=== PATIENT | male | born 1955 | race Caucasian/White ===

== ENCOUNTER → 2016-05-02 | Outpatient (CLI) | payer OTHER ==
[~2016-05-02] MED LIST: AMOX500T3 PO; ASPCH81X PO; INSDGI SC; INSU100I SC; LISI-787 PO; POTASSIUM PO; VITAMIN C PO; VITAMIN E PO
[2016-05-02 10:02] LABS: BLOOD UREA NITROGEN 21 mg/dl (7-18); BUN/CREATININE RATIO 18.9 (10-20); CALCIUM 8.5 mg/dl (8.5-10.1); CARBON DIOXIDE 29 mmol/L (21-32); CHLORIDE 105 mmol/L (98-107); GLUCOSE 163 mg/dl (70-99); POTASSIUM 4.6 mmol/L (3.5-5.1); SODIUM 141 mmol/L (136-145)
[2016-05-02 10:08] LABS: ESTIMATED AVERAGE GLUCOSE 209 mg/dl; HA1C FLAG Normal (Normal)
== END | disposition home or self-care (01) ==
LOC: C.CPL 08:49
DX: Z01.810 Encounter for preprocedural cardiovascular examination (principal); Z01.812 Encounter for preprocedural laboratory examination; R94.31 Abnormal electrocardiogram [ECG] [EKG]

== ENCOUNTER → 2016-05-28 | Day surgery (SDC) | payer OTHER ==
[2016-05-14 09:48] VITALS: Ht 182.9 cm; Wt 111.4 kg
[~2016-05-28] VITALS: Ht 182.9 cm; Wt 111.4 kg
[~2016-05-28] MED LIST changes: +BUPIVACAINE 0.5 % 5 MG/1 ML MPF 30ML VIAL ONE; +CEFAZOLIN 2000 MG/60 ML D5W 60 ML IV SCH; +CEFAZOLIN 2000 MG/60 ML D5W IV SCH; +GELATIN SPONGE SZ 100 ONE; +SILVER SULFADIAZINE 1% CR 50 GM JAR EXT ONE
--- NOTE | 2016-05-28 09:18 | Anesthesiology Progress Note ---
Anesthesia Progress Note Date of Service May 28, 2016. Progress Notes case cancelled. Pt had eaten cookies and drank a glass of chocolate milk at 0730.
== END | disposition home or self-care (01) ==
LOC: X.SURG 08:08
PROVIDERS: ATTEND Podiatrist Foot & Ankle Surgery
DX: B07.9 Viral wart, unspecified (principal); Z53.8 Procedure and treatment not carried out for other reasons; M77.41 Metatarsalgia, right foot; M77.42 Metatarsalgia, left foot; I10 Essential (primary) hypertension; E78.5 Hyperlipidemia, unspecified; E11.9 Type 2 diabetes mellitus without complications; Z90.49 Acquired absence of other specified parts of digestive tract; Z98.890 Other specified postprocedural states

== ENCOUNTER → 2016-06-11 | Day surgery (SDC) | payer OTHER ==
--- NOTE | 2016-05-28 08:26 | HISTORY & PHYSICAL EXAMINATION ---
DATE OF ADMISSION: 05/28/2016 HISTORY OF PRESENT ILLNESS: A 61-year-old male presents for preop history and physical, requesting lesion surgery over both feet. Lesions are gradually worsening over time. Lesions have existed for several months. Unchanged with current treatment. Reports they are painful, indicates acid therapy does not change the condition, cryotherapy does not change the condition, debridement does not change the condition. Past treatments and tests for this condition include bleomycin acid therapy, cryotherapy, laser vaporization, and lesion excision. He notes the pain is rated as a 7 on a 10-point scale. Due to the nature and severity of the discomfort, he is requesting surgical intervention. He also requests new Rx for Metanx, he already stopped taking the medication for 6 months, numbness and tingling returned. PAST SURGICAL HISTORY: Appendectomy, colonoscopy. PAST MEDICAL HISTORY: Hypertension, hyperlipidemia, diabetes. MEDICATIONS: Vitamin E, vitamin C, amoxicillin, lisinopril, NovoLog, potassium, Metanx, Lantus. ALLERGIES: No known medical allergies. FAMILY HISTORY: Unremarkable. SOCIAL HISTORY: The patient denies smoking, alcohol use, illicit drug use, and STDs. REVIEW OF SYSTEMS: Unremarkable except chief complaint. PHYSICAL EXAMINATION: VITAL SIGNS: BP 122/90, temperature is 96.1. Height 5 feet 11, weight 250 pounds, body mass index 35. CONSTITUTIONAL: The patient appears well developed and nourished with good attention to body grooming and habitus. HEAD AND FACE: Head is normocephalic and atraumatic without any gross head, face, or neck masses. EARS, NOSE, EYES AND THROAT: Unremarkable. NECK: Neck is supple. Trachea is midline. CARDIOVASCULAR: Normal S1, S2, without murmur, gallops, rubs or clicks noted. Cardiovascular exam is normal. RESPIRATORY: Chest is symmetric. No scars are visible. No port or pacemaker. LUNGS: Clear to auscultation bilaterally and equal. GASTROINTESTINAL: Abdominal organs, bladder and kidneys show no abnormalities, masses, tenderness or rigidity. LYMPHATIC: No popliteal, inguinal or supraclavicular lymphadenopathy noted. VASCULAR: DP palpable. PT palpable. DERMATOLOGIC: Cutaneous lesions are observed bilateral feet. These lesions are located plantar aspect of left and right arch, showing no interruption of skin tension lines, but they are calloused. Submet right third, submet right fifth, submet left second, submet left fifth demonstrate lesions that are calloused, showing interruption of skin tension lines. NEUROLOGICAL: Touch, pin, vibratory pinprick sensations are decreased. Epicritic sensation per Garcia-Addison monofilament 5.07 decreased. MUSCULOSKELETAL: Muscle tone is normal. Muscle strength is 5/5 in all groups tested. PIPJ contractures 2 through 5 bilaterally. IMPRESSION: 1. Cutaneous vascular lesions, bilateral feet, status post partial lesion excision, hypergranular changes consistent with verruca CO2 laser vaporization 11/09/2013, status post bleomycin injection 06/20/2014, status post partial lesion excision, hypergranular, is compatible with verruca x2 left foot, bleomycin injection 08/29/2014. PLAN: I informed the patient the etiologies of cutaneous vascular lesions, offered the following treatment options: 1. Debridement and application of acid. 2. Surgical excision. 3. Cryotherapy. 4. CO2 laser vaporization. 5. Bleomycin. Reviewed procedure, risks and complications of each treatment at length. All questions were answered. The patient is aware that no treatment in common use is 100% effective and success rate for all these treatments are relatively similar. The patient elects to proceed with CO2 laser vaporization and partial lesion excision in bilateral lower extremities with local with IV sedation as an outpatient at surgery center. Procedure, risks, complications fully reviewed with the patient. Consent form and foot diagram and illustration reviewed in all their entirety. The patient's questions were answered. Complications were discussed in detail with the patient including pain, infection, swelling that may or may not be excessive, pins and needles feeling, numbness, metatarsalgia, excessive bleeding, delay or nonhealing skin, enlarged scar, failure of the procedure, recurrence or worsening condition that may or may not require further surgery, adverse reaction to anesthesia, allergic reaction to suture or other implant material, loss of toe, foot, or leg, transfer lesion or callus, peripheral neurovascular complications such as phlebitis, damage to nerves or vascular structures, significant chronic pain, chronic nerve pain or damage, and general medical complications. The patient will be required to be in a surgery shoe for a minimum of 3-7 days and not return to dress shoe for 3 weeks depending on postop edema, need for accommodative padding. The patient is aware this is an elective type procedure and I recommend a second opinion. The patient stated they understood. Consent form was signed with a copy of the foot diagram and illustration given to the patient. Verbal and postoperative instructions were given. The patient will return to the office for postop check or sooner if medically necessary. Instructed to keep the dressing clean, dry and intact until seen at the office. At time of the preoperative appointment, prescriptions for Metanx, Silvadene, acetaminophen, hydrocodone and Keflex were dispensed.
[2016-06-10 08:08] VITALS: Ht 182.9 cm; Wt 111.4 kg
[~2016-06-11] VITALS: Ht 182.9 cm; Wt 111.4 kg
[~2016-06-11] MED LIST changes: +ATROPINE SULFATE 0.1 MG/ML 5ML SYR IV PRN; -CEFAZOLIN 2000 MG/60 ML D5W 60 ML IV SCH; +EpHEDrine SULFATE INJ 50 MG/ML AMP IV PRN; +FENTANYL CITRATE INJ 50 MCG/1 ML 2 ML VIAL IV PRN; +FENTANYL CITRATE INJ 50 MCG/1 ML 2 ML VIAL ONE; +HYDROmorphone INJ 1 MG/ML SYR IV PRN; +LABETALOL HCL IV 5 MG/ML 20ML IV ONE; +LACTATED RINGER'S 1000ML 1,000 ML IV SCH; +LIDOCAINE HCL 2% 2 ML VIAL (20MG/ML) ONE; +MIDAZOLAM HCL 1 MG/ML 2ML VIAL ONE; +ONDANSETRON INJ 2 MG/ML 2 ML VIAL IV PRN; +PROPOFOL IV EMULSION 10 MG/ML 20 ML VIAL IV ONE; +SODIUM CHLORIDE 0.9% 1000ML 1,000 ML IV SCH
--- NOTE | 2016-06-11 06:57 | History & Physical Bridge - [place] ---
H&P Re-Evaluation Bridge Note: I have examined the patient, reviewed the History & Physical and in the interval since the performance of the History & Physical I have noted the following changes of clinical significance: No changes noted
--- NOTE | 2016-06-11 07:01 | Discharge Instructions-SurgCtr ---
Discharge Instructions Date of Service Jun 11, 2016. Visit Reason for Visit: Bilateral Feet Painful Vascular Lesions Discharge Discharge Diagnosis / Problem: same as diagnosis Discharge Goals Goal(s): Decrease discomfort, Improve disease control Activity Recommendations Activity Limitations: as noted below Medications: * Resume previous medications unless instructed by your surgeon. * Take your medications as prescribed. Call our office ([phone]) at any time, if you experience severe pain that does not subside shortly after taking your pain medication. Activity: * You may walk on your operated foot/ankle using the surgical shoe or cast/splint. Do not put any weight on your operated foot/ankle without wearing the surgical shoe or cast sandal.. Special Care: * Keep your bandage clean and dry. Do not remove your bandage unless otherwise instructed. A small amount of blood may appear on the bandage over the surgical site. Call our office ([phone]) if you bandage becomes blood-soaked or wet. * Elevate your operated foot/ankle on pillows, above the level of your heart, as often as possible during the first 2-3 days following surgery. Keep your knee flexed slightly with a pillow under your knee when you elevate your foot/ankle. * Apply a ice bag to your foot/ankle over the operative site for 20-30 minutes out of each hour while you are awake. Do not allow the ice bag to directly contact bare skin. * Avoid bumping or handling any pins visible in your toes. If any pin feels or appears loose, call the office ([phone]). * Take your oral temperature in the morning and at bedtime. Call our office ([phone]) if your temperature rises above 101 degrees Fahrenheit. Call your surgeon's office at ([phone]) for any problems or concerns such as excessive bleeding and/or pain unrelieved by your prescribed pain medications. If you have any questions, please do not hesitate to ask them. Avoid all tobacco products. If you need help to stop smoking, call [place]'s FREE QUITLINE at . This is a free call. Follow-up: Follow-up with Dr. Lucas Anesthesia . Post Anesthesia Instructions: If you have had General Anesthesia or IV Sedation: * Do not drive today. * Resume driving when surgeon permits. * Do not make important decisions or sign legal documents today. * Call surgeon for: 1. Temperature elevations greater than 101 degrees F. 2. Uncontrollable pain. 3. Excessive bleeding. 4. Persistent nausea and vomiting. 5. Medication intolerance (nausea, vomiting or rash). * For nausea and vomiting use only clear liquids such as: tea, soda, bouillon until nausea subsides, then gradually increase diet as tolerated. * If you have any concerns or questions, call your surgeon's office. If physician is unavailable and it is an emergency, call 911 or go to the nearest emergency room. . Diet Recommendations Home Diet: resume previous diet Pending Studies Studies pending at discharge: no Medical Emergencies . Who to Call and When: Medical Emergencies: If at any time you feel your situation is an emergency, please call 911 immediately. . Non-Emergent Contact Non-Emergency issues call your: Primary Care Provider . . "Provider Documentation" section prepared by Frida Johns.
[2016-06-11 07:46] VITALS: TEMP 36.4
[2016-06-11 08:00] VITALS: BP 159/83; PULSE 71; O2SAT 96
--- NOTE | 2016-06-11 08:05 | Anesthesia Progress Nt - [facility] ---
Anesthesia Post Op Note Date & Time Jun 11, 2016 at 08:05 Vital Signs Pain Intensity: 0 Vital Signs Past 12 Hours Date Time Temp Pulse Resp B/P Pulse Ox O2 Delivery O2 Flow Rate FiO2 06/11/16 08:00 71 16 159/83 96 Room Air 06/11/16 07:46 36.4 78 18 148/68 95 Room Air 06/11/16 06:30 36.6 74 18 184/90 96 Room Air Notes Mental Status: alert / awake / arousable, participated in evaluation Pt Amnestic to Procedure: Yes Nausea / Vomiting: adequately controlled Pain: adequately controlled Airway Patency, RR, SpO2: stable & adequate BP & HR: stable & adequate Hydration State: stable & adequate Anesthetic Complications: no major complications apparent
--- NOTE | 2016-06-11 11:00 | OPERATIVE REPORT ---
DATE OF OPERATION: 06/11/2016 PREOPERATIVE DIAGNOSES: 1. Painful vascular lesions, bilateral feet. 2. Metatarsalgia secondary to painful lesions. POSTOPERATIVE DIAGNOSES: Same. PROCEDURES: 1. CO2 laser vaporization approximately 11 square cm bilateral feet. 2. Partial lesion excision to a depth of 1.2 on the left x5 and right x3. ANESTHESIA: IV with local sedation, preop block given 30 mL 0.5% Marcaine plain. HEMOSTASIS: None. ESTIMATED BLOOD LOSS: Less than 5 mL. MATERIALS: Gelfoam. CONDITION: The patient tolerated the procedure and anesthesia well without complications, transported to the recovery room, vital signs stable and neurovascular status intact. DESCRIPTION OF PROCEDURE: The patient was brought to the OR and placed on the OR table in supine position. Upon completion of IV with local sedation, local field block was performed with the above-mentioned anesthetic. The extremities were scrubbed, prepped and draped in the usual aseptic fashion. Attention was directed to the plantar aspect of bilateral feet. Partial excision of lesion to the depth of 1.2 cm, 5 areas on the left and 3 areas on the right, laser was set at 10 calix and completely ablated the forefoot and midfoot areas of bilateral feet of all involvement. This area was debrided and a second application was applied at 8 calix. Gelfoam was used over the lesion excision sites. All bleeding was controlled. Dry sterile compressive dressing consisting of Silvadene, 4 x 4's, ABDs, Kerlix, and an Scot was applied. The patient tolerated the procedure and anesthesia well without complications, transported to the recovery room, vital signs stable and neurovascular status intact. I attest to the content of the Intraoperative Record and any orders documented therein. Any exceptio ns are noted below.
== END | disposition home or self-care (01) ==
LOC: X.SURG 06:17
PROVIDERS: ATTEND Podiatrist Foot & Ankle Surgery
DX: B07.8 Other viral warts (principal); E11.9 Type 2 diabetes mellitus without complications; M19.90 Unspecified osteoarthritis, unspecified site

== ENCOUNTER → 2016-08-05 | Outpatient (CLI) | payer OTHER ==
[~2016-08-05] MED LIST changes: -ATROPINE SULFATE 0.1 MG/ML 5ML SYR IV PRN; -BUPIVACAINE 0.5 % 5 MG/1 ML MPF 30ML VIAL ONE; -CEFAZOLIN 2000 MG/60 ML D5W IV SCH; -EpHEDrine SULFATE INJ 50 MG/ML AMP IV PRN; -FENTANYL CITRATE INJ 50 MCG/1 ML 2 ML VIAL IV PRN; -FENTANYL CITRATE INJ 50 MCG/1 ML 2 ML VIAL ONE; -GELATIN SPONGE SZ 100 ONE; -HYDROmorphone INJ 1 MG/ML SYR IV PRN; -LABETALOL HCL IV 5 MG/ML 20ML IV ONE; -LACTATED RINGER'S 1000ML 1,000 ML IV SCH; -LIDOCAINE HCL 2% 2 ML VIAL (20MG/ML) ONE; -MIDAZOLAM HCL 1 MG/ML 2ML VIAL ONE; -ONDANSETRON INJ 2 MG/ML 2 ML VIAL IV PRN; -PROPOFOL IV EMULSION 10 MG/ML 20 ML VIAL IV ONE; -SILVER SULFADIAZINE 1% CR 50 GM JAR EXT ONE; -SODIUM CHLORIDE 0.9% 1000ML 1,000 ML IV SCH
--- NOTE | 2016-08-06 13:06 | CODING QUERY NO DIAGNOSIS ---
TREATMENT RENDERED WITHOUT A DIAGNOSIS To promote full compliance with coding requirements relating to patient care, physician participation is requested in all cases of station manager uncertainty. Please assist us with providing a diagnosis/symptom for the test(s) below: A diagnosis/symptom was not documented on your Order. A valid diagnosis/symptom is required to bill all insurances. Please remember that we are unable to code a diagnosis of rule out, probable, possible, questionable, or suspected. Tests that require a diagnosis: * WOUND CULTURE, SURFACE AND GS R FOOT DIAGNOSIS: Provider Signature: Date: Thank you Karen [place] [employer] Once completed, please kindly fax back to [phone] For questions please call [phone]
== END | disposition home or self-care (01) ==
LOC: C.LABSPEC 17:08
PROVIDERS: ATTEND Podiatrist Foot & Ankle Surgery
DX: L03.115 Cellulitis of right lower limb (principal)

== ENCOUNTER → 2016-10-21 | Outpatient (CLI) | payer OTHER ==
[2016-10-21 09:35] LABS: BASO % 0.3 %; BASO ABS # 0.02 K/uL (0-0.2); COMPLETE YES; EOS % 3.8 %; HEMATOCRIT 44.9 % (42-52); IG% 0.5 %; LYMPH % 21.8 %; LYMPH ABS # 1.27 K/uL (1.2-3.4); MEAN CELL VOLUME 79.2 fL (80-100); MEAN CORPUSCULAR HEMOGLOBIN 25.7 pg (25-34); MEAN CORPUSCULAR HGB CONC 32.5 g/dl (32-36); MEAN PLATELET VOLUME 10.4 fL (7.4-10.4); MONO % 9.3 %; NEUT % 64.3 %; PLATELET COUNT 226 K/uL (130-400); RED BLOOD COUNT 5.67 M/uL (4.7-6.1); WHITE BLOOD COUNT 5.83 K/uL (4.8-10.8)
[2016-10-21 10:10] LABS: RATIO 108.6 mcg/mg (0-30.0)
[2016-10-21 10:14] LABS: ALB/GLOB RATIO 1.1 (0.9-2); ALT/SGPT 37 U/L (12-78); AST/SGOT 18 U/L (15-37); BLOOD UREA NITROGEN 17 mg/dl (7-18); BUN/CREATININE RATIO 17.8 (10-20); CALCIUM 8.5 mg/dl (8.5-10.1); CARBON DIOXIDE 23 mmol/L (21-32); CHLORIDE 106 mmol/L (98-107); CHOLESTEROL 161 mg/dl (0-200); CHOLESTEROL/HDL RATIO 5.4; CREATININE 0.96 mg/dl (0.60-1.40); GLUCOSE 163 mg/dl (70-99); HDL CHOLESTEROL 30 mg/dl; POTASSIUM 4.1 mmol/L (3.5-5.1); SODIUM 137 mmol/L (136-145)
[2016-10-21 10:17] LABS: ALKALINE PHOSPHATASE 96 U/L (45-117); LDL CHOLESTEROL CALCULATED 106 mg/dl; TRIGLYCERIDES 127 mg/dl (0-150); VERY LOW DENSITY LIPOPROT CALC 25 mg/dl
[2016-10-21 10:59] LABS: ESTIMATED AVERAGE GLUCOSE 194 mg/dl; HA1C FLAG Normal (Normal)
== END | disposition home or self-care (01) ==
LOC: C.LAB1850 08:13
DX: I10 Essential (primary) hypertension (principal); E78.5 Hyperlipidemia, unspecified; M19.90 Unspecified osteoarthritis, unspecified site

== ENCOUNTER → 2017-03-20 | Outpatient (CLI) | payer OTHER ==
[2017-03-20 09:35] LABS: BASO % 0.6 %; BASO ABS # 0.03 K/uL (0-0.2); EOS % 3.7 %; EOS ABS # 0.19 K/uL (0-0.5); HEMATOCRIT 43.2 % (42-52); HEMOGLOBIN 14.7 g/dL (14.0-18.0); IG# 0.02 K/uL (0.00-0.02); LYMPH ABS # 1.09 K/uL (1.2-3.4); MEAN CORPUSCULAR HEMOGLOBIN 26.9 pg (25-34); MEAN PLATELET VOLUME 10.7 fL (7.4-10.4); MONO % 8.3 %; MONO ABS # 0.43 K/uL (0.11-0.59); NEUT ABS # 3.42 K/uL (1.4-6.5); PLATELET COUNT 179 K/uL (130-400); RED CELL DISTRIBUTION WIDTH CV 13.9 % (11.5-14.5); RED CELL DISTRIBUTION WIDTH SD 39.1 fL (36.4-46.3); WHITE BLOOD COUNT 5.18 K/uL (4.8-10.8)
[2017-03-20 09:52] LABS: HEMOGLOBIN A1C 9.1 % (4.5-5.6)
[2017-03-20 10:36] LABS: ALT/SGPT 36 U/L (12-78); AST/SGOT 14 U/L (15-37)
[2017-03-20 10:36] LABS: BLOOD UREA NITROGEN 25 mg/dl (7-18); CALCIUM 8.8 mg/dl (8.5-10.1); CARBON DIOXIDE 26 mmol/L (21-32); CREATININE 1.04 mg/dl (0.60-1.40); GLUCOSE 192 mg/dl (70-99); POTASSIUM 4.1 mmol/L (3.5-5.1); SODIUM 137 mmol/L (136-145)
== END | disposition home or self-care (01) ==
LOC: C.LAB1850 08:21
DX: E11.65 Type 2 diabetes mellitus with hyperglycemia (principal); I10 Essential (primary) hypertension; E78.5 Hyperlipidemia, unspecified

== ENCOUNTER → 2017-05-13 | Outpatient (CLI) | payer OTHER | END | disposition home or self-care (01) | LOC: C.LABSPEC 16:53 | PROVIDERS: ATTEND Podiatrist Foot & Ankle Surgery | DX: L97.509 Non-pressure chronic ulcer of other part of unspecified foot with unspecified severity (principal) ==

== ENCOUNTER → 2017-06-16 | Outpatient (CLI) | payer OTHER ==
[2017-06-16 12:28] LABS: HEMOGLOBIN A1C 9.2 % (4.5-5.6)
== END | disposition home or self-care (01) ==
LOC: C.LAB1850 10:27
PROVIDERS: ATTEND Nurse Practitioner Family
DX: E11.65 Type 2 diabetes mellitus with hyperglycemia (principal)

== ENCOUNTER → 2017-06-23 | Outpatient (CLI) | payer OTHER | END | disposition home or self-care (01) | LOC: C.LABSPEC 16:45 | PROVIDERS: ATTEND Podiatrist Foot & Ankle Surgery | DX: L97.509 Non-pressure chronic ulcer of other part of unspecified foot with unspecified severity (principal) ==

== ENCOUNTER → 2017-10-17 | Outpatient (CLI) | payer OTHER ==
[2017-10-17 11:10] LABS: ALBUMIN 3.7 gm/dl (3.4-5.0); ALKALINE PHOSPHATASE 96 U/L (45-117); ALT/SGPT 40 U/L (12-78); AST/SGOT 21 U/L (15-37); BLOOD UREA NITROGEN 19 mg/dl (7-18); CALCIUM 8.5 mg/dl (8.5-10.1); CARBON DIOXIDE 29 mmol/L (21-32); GLUCOSE 259 mg/dl (70-99); LDL CHOLESTEROL (DIRECT) 107 mg/dl; POTASSIUM 4.3 mmol/L (3.5-5.1); SODIUM 135 mmol/L (136-145); TOTAL PROTEIN 7.5 gm/dl (6.4-8.2)
[2017-10-17 11:56] LABS: HEMOGLOBIN A1C 8.5 % (4.5-5.6)
== END | disposition home or self-care (01) ==
LOC: C.LAB1850 09:24
PROVIDERS: ATTEND Internal Medicine Endocrinology, Diabetes & Metabolism
DX: E11.65 Type 2 diabetes mellitus with hyperglycemia (principal); E78.5 Hyperlipidemia, unspecified

== ENCOUNTER → 2017-11-07 | Outpatient (CLI) | payer OTHER ==
[2017-11-07 10:52] LABS: BLOOD UREA NITROGEN 26 mg/dl (7-18); CALCIUM 8.8 mg/dl (8.5-10.1); CARBON DIOXIDE 25 mmol/L (21-32); CREATININE 1.14 mg/dl (0.60-1.40); GLUCOSE 163 mg/dl (70-99); POTASSIUM 4.2 mmol/L (3.5-5.1); SODIUM 138 mmol/L (136-145)
== END | disposition home or self-care (01) ==
LOC: C.LAB1850 08:33
PROVIDERS: ATTEND Internal Medicine Endocrinology, Diabetes & Metabolism
DX: I10 Essential (primary) hypertension (principal); E11.21 Type 2 diabetes mellitus with diabetic nephropathy

== ENCOUNTER → 2017-11-09 | Outpatient (CLI) | payer OTHER ==
[2017-11-09 09:35] LABS: HEMATOCRIT 41.3 % (42-52); HEMOGLOBIN 13.9 g/dL (14.0-18.0); MEAN CELL VOLUME 77.2 fL (80-100); MEAN CORPUSCULAR HGB CONC 33.7 g/dl (32-36); MEAN PLATELET VOLUME 10.8 fL (7.4-10.4); PLATELET COUNT 184 K/uL (130-400); RED CELL DISTRIBUTION WIDTH CV 14.1 % (11.5-14.5); RED CELL DISTRIBUTION WIDTH SD 39.7 fL (36.4-46.3); WHITE BLOOD COUNT 6.52 K/uL (4.8-10.8)
[2017-11-09 09:48] LABS: BLOOD UREA NITROGEN 25 mg/dl (7-18); CALCIUM 8.5 mg/dl (8.5-10.1); CARBON DIOXIDE 23 mmol/L (21-32); CREATININE 1.18 mg/dl (0.60-1.40); POTASSIUM 4.4 mmol/L (3.5-5.1); SODIUM 134 mmol/L (136-145)
[2017-11-09 09:55] LABS: GLUCOSE 381 mg/dl (70-99)
== END | disposition home or self-care (01) ==
LOC: C.LAB1850 08:15
PROVIDERS: ATTEND Internal Medicine Interventional Cardiology
DX: R06.00 Dyspnea, unspecified (principal)

== ENCOUNTER 2018-11-20 05:12 | Observation (INO) ==
[2018-11-20] MEDS ORDERED: NITROGLYCERIN SL 0.4 MG/TAB TAB SL STA (05:26)
[2018-11-20] MEDS ORDERED: ASPIRIN 81 MG CHEW PO STA (05:26)
[2018-11-20 06:02] LABS: Basophils # (auto) 0.02 K/uL (0-0.2); Basophils % (auto) 0.3 %; Eosinophils # (auto) 0.19 K/uL (0-0.5); Eosinophils % (auto) 2.7 %; Hematocrit (blood only) 38.6 % (42-52); Immature Granulocytes # (auto) 0.03 K/uL (0.00-0.02); Immature Granulocytes % (auto) 0.4 %; Lymphocytes % (auto) 21.1 %; Mean Corpuscular Hemoglobin 26.3 pg (25-34); Mean Corpuscular Hgb Conc 33.7 g/dL (32-36); Mean Platelet Volume 9.9 fL (7.4-10.4); Monocytes # (auto) 0.72 K/uL (0.11-0.59); Monocytes % (auto) 10.1 %; Neutrophils # (auto) 4.66 K/uL (1.4-6.5); Neutrophils % (auto) 65.4 %; Platelet Count 207 K/uL (130-400); RDW Coefficient of Variation 14.8 % (11.5-14.5); RDW Standard Deviation 41.2 fL (36.4-46.3); Red Blood Count 4.95 M/uL (4.7-6.1); White Blood Count 7.12 K/uL (4.8-10.8)
[2018-11-20] MEDS ORDERED: LABETALOL HCL IV 5 MG/ML 20ML IV STA (06:06)
[2018-11-20 06:13] LABS: Prothrombin Time 10.3 Seconds (9.0-12.0)
[2018-11-20 06:17] LABS: BUN Creatinine Ratio 26.9 (10-20); Blood Urea Nitrogen 28 mg/dl (7-18); Calcium 8.3 mg/dl (8.5-10.1); Carbon Dioxide 29 mmol/L (21-32); Chloride 105 mmol/L (98-107); Creatinine Clr Calc Pharmacy 90.2 ml/min; Est GFR (African American) 85.9; Est GFR (Non-African American) 74.1; Glucose 115 mg/dl (70-99); Potassium 3.8 mmol/L (3.5-5.1); Sodium 139 mmol/L (136-145)
[2018-11-20 06:22] LABS: Troponin I < 0.015 ng/ml (0-0.045)
--- NOTE | 2018-11-20 06:25 | XRay Report ---
XR chest 1V portable CLINICAL HISTORY: Atypical chest pain COMPARISON STUDY: September 2013 FINDINGS: The heart is mildly enlarged. There is no failure. There is no focal pulmonary consolidatio n. There are no pleural effusions.[ IMPRESSION: No active disease in the chest. Electronically signed by: Yo Hall M.D. 11/20/2018 6:23 AM
[2018-11-20] MEDS ORDERED: MoRPHine SULFATE 10 MG/ML CARP/VIAL IV STA (06:51)
[2018-11-20] MEDS ORDERED: MoRPHine SULFATE 4 MG/ML 1 ML CARP\\VIAL ONE (06:55)
[2018-11-20] MEDS ORDERED: MoRPHine SULFATE 2 MG/ML CARP ONE (06:55)
--- NOTE | 2018-11-20 07:47 | Emergency Department Note ---
Entered by Kevin Tillman acting as a scribe for Mariano Tee MD ED Provider Note Name: Josafat Foster Age: 63 Arrives Via: Private Vehicle Informant: Self CC: Chest pain HPI: 63 male arrives for evaluation of worsening chest pain beginning 10 days ago. The patient states he has had intermittent chest pain pain on the left side under his heart and ribs. He reports it sometimes goes through to his back. The patient notes he has a history of 4 stent placements. He states the first round was 1.5 years ago and the most recent was 2 weeks ago in [place]. The patient reports his chef & owner is Dr. Cho from [place]. He notes he did take a baby aspirin 3.5 hours ago without relief. The patient states he did not take nitroglycerin because he did not have any. He reports he is on Plavix and h ydrochlorothiazide and denies missing a dose of medication. The patient notes he has a history of DM and HTN, and a family history of each. He states a history of an appendectomy. The patient reports he gives himself Novalog. He denies nausea, leg swelling, taking Coumadin, vomiting, LOC, lightheadedness. He also denies a history of smoking. His PCP is Dr. Duffy. ROS: See above HPI for pertinent positives & negatives. A total of 10 systems reviewed and were otherwise negative. Past Medical History: DM, HTN Past Surgical History: Stent placement Family History: DM, HTN Social History: Lives with . . Home Medications: see below Allergies none Physical: Vitals: BP 150/94, Pulse 76, Resp 20, O2Sat 97 on RA Exam: GENERAL: Patient is anxious appearing and in no acute distress. EYES: No scleral icterus, unremarkable pupils. ENT: Mucous membranes moist, no nasal congestion. NECK: No masses appreciated, no meningismus, trachea is midline. RESPIRATORY: No dyspnea. Clear to auscultation and equal bilaterally. No wheeze, no rhonchi. CARDIOVASCULAR: Regular rate and rhythm. No murmurs, rubs, gallops appreciated. GASTROINTESTINAL: Abdomen soft, non-tender, no peritonitis. Bowel sounds positive. No masses appreciated. BACK: No midline tenderness, no CVA tenderness EXTREMITIES: Normal motion all extremities, no cyanosis, no edema. NEUROLOGIC: Alert and oriented, no acute motor or sensory deficits, no focal weakness, cranial nerves grossly intact. SKIN: No rash, no jaundice, no diaphoresis. ED Course: Prior Medical Record, Triage/Nursing Notes, Medications, Allergies reviewed by Me Vital Signs: reviewed and remarkable for HTN Labs: Reviewed and remarkable for normal cbc, bmp, trop Interventions: saline lock, slntg, asa 324mg po, labetalol 10mg IV, Morphine 6mg IV Imaging: X ray results are stated below per my interpretation: Chest: 1 view: No infiltrate, no effusion, normal cardiac border. EKG: Per My Interpretation: Indication CP: Sinus 81 bpm without ischemia. 439 qtc. PVC noted. No previous for comparison. Consults: 0710: I discussed the patient's case with Dr. Stevenson, [facility] Hospitalist. The patient will be evaluated for further management and care. Reassessments/Times: 0520: Past medical records reviewed. The patient was evaluated in room A03. A complete history and physical exam was performed. 0606: The patient states his chest pain is worse with the sublingual nit roglycerin. He remains HTN. 0643: The patient states his pain is now shooting up and down the left side of his chest. He is asking for a strong pain pill. His blood pressure has normalized. 705: Hospitalist consulted for further evaluation Blood pressure: Elevated - Referred to PCP Disposition: Hospitalist evaluation Prescriptions: None. Differentials: Differential diagnoses includes but is not limited to acute coronary syndrome, myocardial infarction, pericarditis, pulmonary embolus, ao rtic dissection, pneumonia, pneumothorax, musculoskeletal, shingles, esophageal. Medical Decision Makin yr old with DMII, HTN, DLP, CAD, who arrives 2 weeks post Cath with stenting stating worsening left chest pain from base pain he has been having last 2 weeks. Quite hypertensive on arrival. States SLNTG made worse though labetalol making better though a bit lightheaded. Notes some mild continued pain which is nonspecific and he periodically points to left flank, sometimes left anterior chest. Doesn't sound like dissection nor PE. Was given some morphine as slntg didn't seem to help. With cp added in 162mg ASA to his already taking two baby asa at home. Single dose labetalol brought down BP nicely. With his extensive history and left chest pains I see no real option other than to evaluate further. Impression: Left-Sided Chest Pain Hypertension Emergency Mariano Tee MD The scribe's documentation has been prepared under my direction and personally reviewed by me in its entirety. I confirm that the note above accurately reflects all work, treatment, procedures, and medical decision making performed by me. Impression & Plan Left-sided chest pain, Hypertensive emergency Past Med/Surg History Medical History Coronary artery disease Peripheral arterial disease Surgical History S/P coronary angiogram S/P coronary artery stent placement S/P peripheral artery angioplasty with stent placement Family History Other Diabetes Social History Current Living Situation: Spouse Feels Safe at Home: Yes Smoking Status: Former smoker Results & Data Vital Signs Vital Signs - 24 hr 11/20/18 05:17 11/20/18 05:55 11/20/18 06:00 Temperature Source Oral Sepsis Recent Fever Within 48 Hours No Sepsis Action Taken by Nursing No Action Required Pulse Rate 82 Pulse Rate [Right Finger] 86 Pulse Rhythm Regular Pulse Rhythm [Right Finger] Regular Pulse Strength Normal Pulse Strength [Right Finger] Normal Respiratory Rate 20 16 Respiratory Effort / Characteristics Non-Labored Spontaneous Respiratory Depth Normal Normal Respiratory Pattern Regular Blood Pressure 236/104 H Blood Pressure [Right Arm] 214/103 H Blood Pressure Mean 148 Blood Pressure Mean [Right Arm] 140 Blood Pressure Position Lying Blood Pressure Position [Right Arm] Lying Pulse Oximetry 97 95 Oxygen Delivery Method Room Air Room Air 11/20/18 06:40 Temperature Source Sepsis Recent Fever Within 48 Hours Sepsis Action Taken by Nursing Pulse Rate Pulse Rate [Right Finger] 73 Pulse Rhythm Pulse Rhythm [Right Finger] Regular Pulse Strength Pulse Strength [Right Finger] Normal Respiratory Rate 16 Respiratory Effort / Characteristics Respiratory Depth Normal Respiratory Pattern Blood Pressure Blood Pressure [Right Arm] 134/87 Blood Pressure Mean Blood Pressure Mean [Right Arm] 102 Blood Pressure Position Blood Pressure Position [Right Arm] Lying Pulse Oximetry 98 Oxygen Delivery Method Room Air Home Medications Current Medication List: was personally reviewed by me Laboratory Data Attestation: I reviewed the patient's lab results. Result diagrams: 11/20/18 05:50 11/20/18 05:50 Lab Results 11/20/18 11/20/18 11/20/18 Range/Units 05:50 05:50 05:50 WBC 7.12 (4.8-10.8) K/uL RBC 4.95 (4.7-6.1) M/uL Hgb 13.0 L (14.0-18.0) g/dL Hct 38.6 L (42-52) % MCV 78.0 L (80-100) fL MCH 26.3 (25-34) pg MCHC 33.7 (32-36) g/dL RDW Std Deviation 41.2 (36.4-46.3) fL RDW Coeff of Leigh Ann 14.8 H (11.5-14.5) % Plt Count 207 (130-400) K/uL MPV 9.9 (7.4-10.4) fL Immature Gran % (Auto) 0.4 % Neut % (Auto) 65.4 % Lymph % (Auto) 21.1 % [place] % (Auto) 10.1 % Eos % (Auto) 2.7 % Baso % (Auto) 0.3 % Immature Gran # (Auto) 0.03 H (0.00-0.02) K/uL Neut # (Auto) 4.66 (1.4-6.5) K/uL Lymph # (Auto) 1.50 (1.2-3.4) K/uL [place] # (Auto) 0.72 H (0.11-0.59) K/uL Eos # (Auto) 0.19 (0-0.5) K/uL Baso # (Auto) 0.02 (0-0.2) K/uL PT 10.3 (9.0-12.0) Seconds INR 1.0 (0.9-1.1) Sodium 139 (136-145) mmol/L Potassium 3.8 (3.5-5.1) mmol/L Chloride 105 (98-107) mmol/L Carbon Dioxide 29 (21-32) mmol/L Anion Gap 5.0 (3-11) BUN 28 H (7-18) mg/dl Creatinine 1.05 (0.6-1.4) mg/dl Est Cr Clr Drug Dosing 90.2 ml/min Est GFR ( Amer) 85.9 Est GFR (Non-Af Amer) 74.1 BUN/Creatinine Ratio 26.9 H (10-20) Glucose 115 H (70-99) mg/dl Calcium 8.3 L (8.5-10.1) mg/dl Troponin I < 0.015 (0-0.045) ng/ml Administered Medications Discontinued Medications Aspirin (Aspirin Chew) 162 mg PO NOW STA Stop: 11/20/18 05:27 Last Admin: 11/20/18 06:02 Dose: 162 mg Documented by: [id number] Labetalol HCl (Normodyne) 10 mg IV NOW STA Stop: 11/20/18 06:07 Last Admin: 11/20/18 06:12 Dose: 10 mg Documented by: [id number] Cosigned by: [id number] Morphine Sulfate (Morphine Sulfate) 6 mg IV NOW Stop: 11/20/18 06:52 Last Admin: 11/20/18 07:03 Dose: Not Given Documented by: [id number] Morphine Sulfate (Morphine Sulfate) Confirm Administered Dose 4 mg .ROUTE .STK- MED ONE Stop: 11/20/18 06:56 Last Admin: 11/20/18 06:57 Dose: 4 mg Documented by: [id number] Morphine Sulfate (Morphine Sulfate) Confirm Administered Dose 2 mg .ROUTE .STK- MED ONE Stop: 11/20/18 06:56 Last Admin: 11/20/18 06:57 Dose: 2 mg Documented by: [id number] Nitroglycerin (Nitrostat) 0.4 mg SL NOW STA Stop: 11/20/18 05:27 Last Admin: 11/20/18 06:02 Dose: 0.4 mg Documented by: [id number] Blood Pressure Blood Pressure Findings: Elevated blood pressure Blood Pressure Disposition: elevated BP felt to be situational Discharge Plan Visit Data Chief Complaint: Chest Pain Stated Complaint: PAIN IN HEART ED Provider: Mariano Tee Discharge Problem: Left-sided chest pain, Hypertensive emergency Forms Stand Alone Forms: Call Back Authorization, [facility] Prescriptions Prescriptions: No Action Novolog Flexpen U-100 Insulin 100 unit/mL (3 mL) insulin pen 30 - 40 units SQ ACHS RF: 0 Tresiba FlexTouch U-100 100 unit/mL (3 mL) insulin pen 95 units SQ HS RF: 0 metoprolol succinate 25 mg tablet extended release 24 hr 25 mg PO DAILY RF: 0 isosorbide mononitrate 30 mg tablet extended release 24 hr 30 mg PO DAILY RF: 0 lisinopril 20 mg tablet 20 mg PO DAILY Qty: 90 RF: 0 hydrochlorothiazide 12.5 mg tablet 12.5 mg PO DAILY Qty: 90 RF: 0 lansoprazole 15 mg capsule,delayed release(DR/EC) 15 mg PO DAILY RF: 0 clopidogrel 75 mg tablet 75 mg PO DAILY RF: 0 [id number]-algal oil [Metanx (algal oil)] 3 mg-35 mg-2 mg -90.314 mg capsule 1 cap PO BID RF: 0 potassium gluconate 595 mg (99 mg) tablet 595 mg PO DAILY RF: 0 ascorbic acid (vitamin C) 500 mg tablet 500 mg PO BID RF: 0 ergocalciferol (vitamin D2) 50,000 unit capsule 50,000 units PO WK RF: 0 fluticasone propion-salmeterol 500-50 mcg/dose blister with device 1 puffs inhalation BID PRN (Reason: Congestion) RF: 0 vitamin E (dl, acetate) 400 unit capsule 400 units PO DAILY RF: 0 ranitidine HCl [Acid Control (ranitidine)] 150 mg tablet 150 mg PO DAILY RF: 0 rosuvastatin 20 mg tablet 20 mg PO DAILY RF: 0 aspirin [Aspir-81] 81 mg Tablet,Delayed Release (Dr/Ec) 81 mg PO DAILY RF: 0 aspirin [Aspirin Childrens] 81 mg Tablet,Chewable 162 mg PO ONCE RF: 0 The scribe's documentation has been prepared under my direction and personally reviewed by me in its entirety. I confirm that the note above accurately reflects all work, treatment, procedures, and medical decision making performed by me.
[2018-11-20] MEDS ORDERED: CARBOHYDRATES FOR HYPOGLYCEMIA PO PRN (09:57)
[2018-11-20] MEDS ORDERED: GLUCOSE 40% GEL 15 GM TUBE PO PRN (09:57)
[2018-11-20] MEDS ORDERED: GLUCAGON FOR INJ 1 MG VIAL SQ PRN (09:57)
[2018-11-20] MEDS ORDERED: ALBUT/IPRATROP 3MG/0.5MG NEB 3 ML VIAL NEB PRN (09:57)
[2018-11-20] MEDS ORDERED: GLUCOSE 10 TABS/TUBE PO PRN (09:57)
[2018-11-20] MEDS ORDERED: MoRPHine SULFATE 2 MG/ML CARP IV PRN (09:57)
[2018-11-20] MEDS ORDERED: ALUMINUM/MAGNESIUM/SIMETH (MAALOX MAX) 30 ML UDC PO PRN (09:57)
[2018-11-20] MEDS ORDERED: ACETAMINOPHEN 325 MG TAB PO PRN (09:57)
[2018-11-20] MEDS ORDERED: ONDANSETRON INJ 2 MG/ML 2 ML VIAL IV PRN (09:57)
[2018-11-20] MEDS ORDERED: DEXTROSE 50% 50 ML SYRINGE IV PRN (09:57)
[2018-11-20] MEDS ORDERED: PHARMACY GLYCEMIC MGMT CONSULT PRN (10:22)
[2018-11-20] MEDS ORDERED: INSULIN ASPART 100 UNITS/ML 3 ML PEN SC SCH (10:30)
[2018-11-20] MEDS: ROSUVASTATIN CALCIUM 20 MG TAB PO SCH (11:16)
[2018-11-20] MEDS: hydroCHLOROthiazide 25 MG TAB PO SCH (11:17)
[2018-11-20] MEDS: ASPIRIN 81 MG ECTAB PO SCH (11:17)
[2018-11-20] MEDS: ISOSORBIDE MONO EXTENDED REL 30 MG TABCR PO SCH (11:18)
[2018-11-20] MEDS: CLOPIDOGREL BISULFATE 75 MG TAB PO SCH (11:19)
[2018-11-20] MEDS: LISINOPRIL 20 MG TAB PO SCH (11:20)
[2018-11-20] MEDS: METOPROLOL SUCC 25MG EXT REL TAB PO SCH (11:20)
[2018-11-20] MEDS: PANTOprazole 40 MG in SYRINGE 0 ML IV SCH ×2 (11:21→20:34)
[2018-11-20] MEDS: SUCRALFATE 1 GM/10 ML UDC PO SCH ×3 (11:24→20:37)
[2018-11-20] MEDS: INSULIN ASPART 100 UNITS/ML 3 ML PEN SC SCH ×3 (12:05→20:36)
--- NOTE | 2018-11-20 13:49 | Pharmacy Report ---
Glycemic Control Consultation - Date of Service November 20, 2018 - Scope Scope: Glycemic Pharmacist consulted for glycemic control and to write orders per [facility] inpatient glycemic control protocol - Objective Weight: 109 kg Accuchecks BSG (last 24hrs): 11/20/18 11/20/18 05:50 11:07 Glucose 115 H POC Glucose 122 H Laboratory Data (last 24hrs): 11/20/18 05:50 Potassium 3.8 Carbon Dioxide 29 Anion Gap 5.0 Creatinine 1.05 Est Cr Clr Drug Dosing 90.2 HbA1c: 8.6% on 08/30/18 - Recent Pertinent Medications Outpatient Anti-diabetic Regimen: * Tresiba 95 units SQ HS * NovoLog ACHS 30-40 units/dose - Assessment & Plan Assessment & Plan: ASSESSMENT: * 63yo T2DM male with near adequate degree of outpatient control. Goal A1c likely <7% based on age/co-morbidities * Pt is maintained on high dose SQ basal bolus insulin regimen as an outpatient. * Pt uses insulin degludec (Tresiba) as outpatient basal insulin. This is non- formulary; will sub to glargine (Lantus) for short term inpatient use. Conversion from degludec to glargine is on a 1:1 basis; but will reduce dosing since, typically, patients do not require outpatient dosing in house d/t controlled CHO/diet (unless patient has significant added risk factors for insulin resistance). * Will initiate CF/CR per reduced basal insulin dosing (75 units) PLAN FOR INPATIENT GLYCEMIC CONTROL: * Basal insulin * Lantus 75 units SQ HS * Bolus insulin * NovoLog per scale ACHS or Q6hrs while NPO * Goal Range: Low 110 mg/dL - High 140 mg/dL * Correction Factor: 10 mg/dL/unit * Nutritional / Prandial insulin per carb ratio of 1 unit per 4 grams CHO consumed * Please note that the plan above was derived based on current level of insulin resistance and hospital stress. These recommendations are appropriate for inpatient admission only. Plan of care upon discharge will need to be reassessed to avoid potential outpatient hypo/hyperglycemia. Thank you.
--- NOTE | 2018-11-20 15:54 | History & Physical Report ---
Date of Service November 20, 2018 Assessment & Plan (1) LUQ abdominal pain: Mostly likely gastritis from taking multiple ASA a day on top of NSAIDs and Plavix. Hgb and vitals are stable & no melena all point away from active GI bleed. - PPI IV BID x 1 day, then PO BID x 1 month - Carafate - Counseled against taking extra aspirin and NSAIDs - Low-dose morphine for a day, though this is not a long-term solution to his likely gastritis - Holding GI consult for now as the patient wants to leave tomorrow and I have low concern for active GI bleed (2) CAD (coronary artery disease): Per patient, had 3 stents put in 2 weeks ago in [place]. - Getting records from his panel builder, Dr. Luisana Betts (o: [phone]; f: [phone]). - Continue ASA, Plavix, beta-lindsay, ACEi, Imdur - Patient is declining his rosuvastatin as he feels it is contributing to his stomach pain. - Will trend troponins and EKGs to rule out cardiac cause of LUQ pain - Given recent cath and stents, no further work-up needed if negative. (3) Diabetic nephropathy associated with type 2 diabetes mellitus: A1c is 8.6% in 08/2018. - Continue Lantus and sliding scale - Glycemic pharmacist consult as his insulin needs are very high. (4) Hypertension: BP high in the hospital. - Continue home meds - Hydralazine PRN (5) DVT prophylaxis: SCDs - Low DVT risk per admission calculator History of Present Illness Primary Care Provider: Dusty Allen Jr, DO 63yo M w/ hx of CAD, DM who presents for LUQ pain x about 1 week. Reports the pain as a sharp pain that sometimes wraps around the left flank to the back. Reports that the pain started about a week ago and has been steadily getting worse since then. Has tried OTC NSAIDs such as Aleve and Advil for it without improvement. Mostly comes at night with it waxing and waning throughout the n ight without any relieving factors. Denies any diaphoresis, lightheadedness, dizziness, nausea, vomiting, or other symptoms. Has been having normal BMs without any melena or hematochezia. Saw his panel builder who felt it was a pulled muscle and did not provide other treatment. He reports that he takes his aspirin and Plavix and if extra aspirin come out of the bottle when he's shaking it that he takes them too because if one is good, then 2-3 are better. Allergies Allergy/AdvReac Type Severity Reaction Status Date / Time No Known Allergies Allergy Unknown Verified 11/20/18 06:09 Home Medications Home Medications Medication Instructions Recorded Confirmed Type ascorbic acid (vitamin C) 500 mg 500 mg PO BID tab 10/28/18 11/20/18 History tablet clopidogrel 75 mg tablet 75 mg PO DAILY tab 10/28/18 11/20/18 History ergocalciferol (vitamin D2) 50,000 50,000 units PO WK cap 10/28/18 11/20/18 History unit capsule fluticasone 500 mcg-salmeterol 50 1 puffs INHALATION BID PRN ea 10/28/18 11/20/18 History mcg/dose blistr powdr for inhalation hydrochlorothiazide 12.5 mg tablet 12.5 mg PO DAILY #90 tab 10/28/18 11/20/18 History isosorbide mononitrate ER 30 mg 30 mg PO DAILY tab 10/28/18 11/20/18 History tablet,extended release 24 hr lansoprazole 15 mg capsule,delayed 15 mg PO DAILY cap 10/28/18 11/20/18 History release levomefolate Ca 3 mg-B6 35 1 cap PO BID 10/28/18 11/20/18 History mg-meB12 2 mg-algal oil 90.314 mg capsule lisinopril 20 mg tablet 20 mg PO DAILY #90 tab 10/28/18 11/20/18 History metoprolol succinate ER 25 mg 25 mg PO DAILY tab 10/28/18 11/20/18 History tablet,extended release 24 hr potassium gluconate 595 mg (99 mg) 595 mg PO DAILY tab 10/28/18 11/20/18 History tablet ranitidine 150 mg tablet 150 mg PO DAILY 11/10/18 11/20/18 History rosuvastatin 20 mg tablet 20 mg PO DAILY 11/10/18 11/20/18 History vitamin E (dl, acetate) 400 unit 400 units PO DAILY 11/10/18 11/20/18 History capsule insulin aspart (U-100) 100 unit/mL 30 - 40 units SQ ACHS ml 11/18/18 11/20/18 History (3 mL) subcutaneous pen insulin degludec (U-100) 100 95 units SQ HS ml 11/18/18 11/20/18 History unit/mL (3 mL) subcutaneous pen aspirin [Aspir-81] 81 mg PO DAILY 11/20/18 11/20/18 History aspirin [Aspirin Childrens] 162 mg PO ONCE 11/20/18 11/20/18 History Past Med/Surg History Medical History Coronary artery disease Peripheral arterial disease Surgical History S/P coronary angiogram S/P coronary artery stent placement S/P peripheral artery angioplasty with stent placement Family History Other Diabetes Social History Preferred Language: Maldivian Communication Ability: Effective Naval Engineer Required: No Beliefs That Will Affect Care: None Current Living Situation: Spouse Other Information That Helps Us Care for You: No Feels Safe at Home: Yes Safety Concerns: Feels Safe At This Time Smoking Status: Never smoker Do You Dip or Chew Tobacco: No ; Second Hand Exposure: No ; Tobacco Cessation Education Requested by Patient: No Hx Alcohol Use: No Hx Substance Use: No Review of Systems Review of Systems: All systems reviewed & are unremarkable except as noted in HPI & below Physical Exam Constitutional: WD/WN, vitals as above Eyes: EOM intact bilaterally; no conjunctival abnormality ENMT: external ear and nose normal, oropharynx normal Neck: trachea midline, no thyromegaly normal visual inspection Respiratory: normal respiratory effort, lungs clear to auscultation no respiratory distress Cardiovascular: RRR, no murmur, no edema Gastrointestinal (Abdomen): Inspection/Auscultation: abdomen normal to inspection and normal bowel sounds; abdomen not distended Percussion/Palpation: abdomen soft; abdomen nontender, no guarding and abdomen not rigid Musculoskeletal: no cyanosis or clubbing, extremities motor strength 5/5 Skin: no rashes, warm and dry Neurologic: moves all extremities and awake Psychiatric: Orientation: alert, oriented to person and cooperative Results & Data Vital Signs (Past 12 Hours) Vital Signs Temp Pulse Pulse Resp BP BP BP 11/20/18 11:37 11/20/18 11:35 36.3 C L 71 18 180/81 H 11/20/18 09:14 36.3 C L 65 14 167/79 H 11/20/18 08:20 65 20 137/81 11/20/18 06:40 73 16 134/87 11/20/18 06:00 86 16 214/103 H 11/20/18 05:55 11/20/18 05:17 82 20 236/104 H Pulse Ox 11/20/18 11:37 97 11/20/18 11:35 97 11/20/18 09:14 98 11/20/18 08:20 97 11/20/18 06:40 98 11/20/18 06:00 95 11/20/18 05:55 97 11/20/18 05:17 Code Status & VTE Plan VTE Prophylaxis Plan VTE Prophylaxis will be ordered: Yes PG Care Time/CCT Total # of Minutes Spent Total Time Spent with Patient: Total time spent is greater than 50% in coordination of care (as documented) at patient's floor/unit and/or counseling patient:
[2018-11-20] MEDS ORDERED: HydrALAZINE HCL 20 MG/ML VIAL IV PRN (16:12)
[2018-11-20] MEDS ORDERED: INSULIN GLARGINE 100 UNIT/ML VIAL SC SCH (21:00)
[2018-11-21 06:28] LABS: Hematocrit (blood only) 39.3 % (42-52); Hemoglobin 13.3 g/dL (14.0-18.0); Mean Corpuscular Hemoglobin 26.2 pg (25-34); Mean Corpuscular Hgb Conc 33.8 g/dL (32-36); Mean Corpuscular Volume 77.4 fL (80-100); Mean Platelet Volume 10.7 fL (7.4-10.4); Platelet Count 220 K/uL (130-400); RDW Coefficient of Variation 14.8 % (11.5-14.5); RDW Standard Deviation 41.5 fL (36.4-46.3); Red Blood Count 5.08 M/uL (4.7-6.1); White Blood Count 7.52 K/uL (4.8-10.8)
[2018-11-21 07:00] LABS: BUN Creatinine Ratio 25.2 (10-20); Calcium 8.7 mg/dl (8.5-10.1); Creatinine Clr Calc Pharmacy 84.7 ml/min; Est GFR (African American) 80.3; Est GFR (Non-African American) 69.3; Magnesium 2.5 mg/dl (1.8-2.4); Potassium 4.3 mmol/L (3.5-5.1)
[2018-11-21 07:07] LABS: Ferritin 301.2 ng/ml (8-388)
[2018-11-21] MEDS: ASPIRIN 81 MG ECTAB PO SCH (08:26)
[2018-11-21] MEDS: hydroCHLOROthiazide 25 MG TAB PO SCH (08:26)
[2018-11-21] MEDS: ROSUVASTATIN CALCIUM 20 MG TAB PO SCH (08:26)
[2018-11-21] MEDS: SUCRALFATE 1 GM/10 ML UDC PO SCH ×2 (08:26→11:53)
[2018-11-21] MEDS: METOPROLOL SUCC 25MG EXT REL TAB PO SCH (08:27)
[2018-11-21] MEDS: ISOSORBIDE MONO EXTENDED REL 30 MG TABCR PO SCH (08:27)
[2018-11-21] MEDS: CLOPIDOGREL BISULFATE 75 MG TAB PO SCH (08:27)
[2018-11-21] MEDS: LISINOPRIL 20 MG TAB PO SCH (08:28)
[2018-11-21] MEDS: INSULIN ASPART 100 UNITS/ML 3 ML PEN SC SCH ×2 (08:28→12:20)
[2018-11-21] MEDS ORDERED: PANTOprazole 40 MG TAB PO SCH (09:00)
--- NOTE | 2018-11-21 10:09 | Pharmacy Report ---
Pharmacy Glycemic Short Note 2 - Date of Service November 21, 2018 - Glycemic Short BSG Results (Last 24 hours): 11/20/18 11/20/18 11/20/18 11:07 17:07 20:21 Glucose POC Glucose 122 H 135 H 194 H 11/20/18 11/21/18 11/21/18 23:44 05:46 07:45 Glucose 156 H POC Glucose 198 H 174 H OUTPATIENT ANTIDIABETIC REGIMEN: * Tresiba 95 units SQ HS * NovoLog ACHS 30-40 units/dose * A1c = 8.6% on 08/30/18, repeat A1c pending for 11/21/18 ASSESSMENT: * 63yo T2DM male with near adequate degree of outpatient control. Goal A1c likely <7% based on age/co-morbidities * Pt is maintained on high dose SQ basal bolus insulin regimen as an outpatient. * Pt uses insulin degludec (Tresiba) as outpatient basal insulin. This is non- formulary; will sub to glargine (Lantus) for short term inpatient use. Conver radha from degludec to glargine is on a 1:1 basis; but initially reduced dosing since, typically, patients do not require outpatient dosing in house d/t controlled CHO/diet (unless patient has significant added risk factors for insulin resistance). * CF/CR initiated per reduced basal insulin dosing (75 units) yesterday * Pt has received 103 units of insulin over the past 24hrs * AM fasting BSG is slightly elevated at 174 mg/dl --> will increase basal slightly from 75 to 80 units * Post-prandial BSGs only slightly elevated --> will change CR per basal of 80 units PLAN FOR INPATIENT GLYCEMIC CONTROL: * Basal insulin: increase * Lantus 80 units SQ HS * Bolus insulin: tighten CR * NovoLog per scale ACHS or Q6hrs while NPO * Goal Range: Low 100 mg/dL - High 140 mg/dL * Correction Factor: 10 mg/dL/unit * Nutritional / Prandial insulin per carb ratio of 1 unit per 3 grams CHO consumed
--- NOTE | 2018-11-21 12:17 | Discharge Summary ---
Date of Service November 21, 2018 Admission HPI Per Admitting Provider 63yo M w/ hx of CAD, DM who presents for LUQ pain x about 1 week. Reports the pain as a sharp pain that sometimes wraps around the left flank to the back. Reports that the pain started about a week ago and has been steadily getting worse since then. Has tried OTC NSAIDs such as Aleve and Advil for it without improvement. Mostly comes at night with it waxing and waning throughout the night without any relieving factors. Denies any diaphoresis, lightheadedness, dizziness, nausea, vomiting, or other symptoms. Has been having normal BMs without any melena or hematochezia. Saw his ceramic designer who felt it was a pulled muscle and did not provide other treatment. He reports that he takes his aspirin and Plavix and if extra aspirin come out of the bottle when he's shaking it that he takes them too because if one is good, then 2-3 are better. Principal Diagnosis LUQ Abdominal pain, suspected gastritis Discharge Exam Constitutional WD/WN, vitals as above Eyes PERRL, conjunctivae normal, anicteric sclerae ENMT external ear and nose normal, oropharynx normal Neck trachea midline, no thyromegaly Respiratory normal respiratory effort, lungs clear to auscultation Cardiovascular RRR, no murmur, no edema Gastrointestinal (Abdomen) normal bowel sounds, soft, nontender, no hepatosplenomegaly Musculoskeletal Extremities: extremities normal to inspection; no cyanosis and no clubbing Skin no rashes, warm and dry Neurologic moves all extremities and awake; no focal motor deficits Psychiatric A+Ox3, euthymic affect Discharge Data Allergies Allergy/AdvReac Type Severity Reaction Status Date / Time No Known Allergies Allergy Unknown Verified 11/20/18 06:09 Consultations None Procedures Performed None Ordered Studies CXR Hospital Course (1) LUQ abdominal pain: Mostly likely gastritis. He reports pain started after he was advised to increase his Crestor to 40mg daily. The pain preceded him taking multiple types of NSAIDs, but certainly NSAIDs likely further contributed to his pain. No LFTs or lipase were drawn on admission, however his symptoms were completely resolved after starting Protonix and sucralfate and not likely to be from pancreatitis. Hgb and vitals are stable & no melena all point away from active GI bleed although he is microcytic with normal Fe studies. Troponins serially negative, ECGs without evidence of acute ischemia - he received PPI IV BID x 1 day, then converted to PO Protonix BID x 1 month - Carafate 1 gm po qachs x 2 weeks was given on discharge as well - Counseled against taking extra aspirin and NSAIDs - no need for GI consultation as symptoms resolved and no evidence of active GI bleeding -advised to return to hospital if has melena or BRBPR, or if has return of pain (2) CAD (coronary artery disease): Per patient, had 3 stents put in 2 weeks ago in [place]. -Requested records from his ceramic designer, Dr. Luisana Betts (o: [phone]; f: [phone]), however did not receive prior to discharge--> advised f/u with Cardiology after discharge - Continue ASA, Plavix, beta-lindsay, ACEi, Imdur, and Crestor 20mg daily (rather than 40mg he was told to take which may have caused his abdominal pains) -ruled out for acute ME here (3) Diabetic nephropathy associated with type 2 diabetes mellitus: A1c is 8.6% in 08/2018. -received basal and bolus insulin here -continue home regimen upon discharge (4) Hypertension: BP high in the hospital initially and then improved. - Continue home meds (5) Microcytic anemia: Does have a very mild anemia with hgb 13.3, microcytic Fe studies here are normal--> question if has a thalassemia perhaps? -would recommend continued follow up with PCP as an outpt (6) DVT prophylaxis: SCDs Dispo-much improved, stable for dc to home today Total Time Total Time Spent Total Time Spent (In Minutes): >30 min Total Time Includes: Examination of the Patient, Discharge Planning and Medication Reconciliation Discharge Plan Discharge Items Patient Disposition: Home - Self-Care Reason For Visit: LUQ PAIN Discharge Diagnosis: Abdominal pain, suspected gastritis Condition: Good Discharge Goals: Decrease discomfort, Diagnostic testing, Improve disease control, Learn about illness and Therapeutic intervention Activity: Resume your previous activity Bathing: No limitations Driving/Machine Use: No limitations Non-emergency contact: Primary Care Provider and Rn Imcu Call non-emergency contact if: you have any medication questions, your symptoms worsen, your pain is not controlled, your pain is worsening, your pain is unusual for you and your pain is concerning for you Follow-up/Referrals: Dusty Allen Jr, DO [Primary Care Provider] - (Please call for a hospital follow up appointment within 1-2 weeks. ) Diet: Carb Consistent or DM2 and Heart Healthy Addtl Provider Instructions: You were admitted with left upper abdominal pain that was thought to be secondary to gastritis or inflammation of the stomach. This may have been related to your recent increase in Crestor to 40mg. It was then likely worsened by taking ibuprofen/Advil/Aleve. Please DO NOT TAKE any other NSAIDs such as ibuprofen/Aleve/naproxen/Advil etc. Your pain improved after starting on Protonix and Carafate--> these are both drugs that help with increased acid and inflammation of the stomach. Please continue taking these medications as prescribed. You should schedule a follow up appointment with both your PCP and your Rn Imcu within 1-2 weeks after discharge. If you develop black or bloody stools, have return of your symptoms, please return to the hospital. Prescriptions: New acetaminophen [Mapap (acetaminophen)] 325 mg Tablet 650 mg PO Q4H PRN (Reason: pain) Qty: 30 RF: 0 sucralfate 100 mg/mL Suspension 10 ml PO ACHS 14 Days Qty: 420 RF: 0 pantoprazole 40 mg Tablet,Delayed Release (Dr/Ec) 40 mg PO BID Qty: 60 RF: 0 Continued Novolog Flexpen U-100 Insulin 100 unit/mL (3 mL) insulin pen 30 - 40 units SQ ACHS RF: 0 Tresiba FlexTouch U-100 100 unit/mL (3 mL) insulin pen 95 units SQ HS RF: 0 metoprolol succinate 25 mg tablet extended release 24 hr 25 mg PO DAILY RF: 0 isosorbide mononitrate 30 mg tablet extended release 24 hr 30 mg PO DAILY RF: 0 lisinopril 20 mg tablet 20 mg PO DAILY Qty: 90 RF: 0 hydrochlorothiazide 12.5 mg tablet 12.5 mg PO DAILY Qty: 90 RF: 0 clopidogrel 75 mg tablet 75 mg PO DAILY RF: 0 [id number]-algal oil [Metanx (algal oil)] 3 mg-35 mg-2 mg -90.314 mg capsule 1 cap PO BID RF: 0 potassium gluconate 595 mg (99 mg) tablet 595 mg PO DAILY RF: 0 ascorbic acid (vitamin C) 500 mg tablet 500 mg PO BID RF: 0 ergocalciferol (vitamin D2) 50,000 unit capsule 50,000 units PO WK RF: 0 fluticasone propion-salmeterol 500-50 mcg/dose blister with device 1 puffs inhalation BID PRN (Reason: Congestion) RF: 0 vitamin E (dl, acetate) 400 unit capsule 400 units PO DAILY RF: 0 rosuvastatin 20 mg tablet 20 mg PO DAILY RF: 0 aspirin [Aspir-81] 81 mg Tablet,Delayed Release (Dr/Ec) 81 mg PO DAILY RF: 0 Discontinued lansoprazole 15 mg capsule,delayed release(DR/EC) 15 mg PO DAILY RF: 0 ranitidine HCl [Acid Control (ranitidine)] 150 mg tablet 150 mg PO DAILY RF: 0 aspirin [Aspirin Childrens] 81 mg Tablet,Chewable 162 mg PO ONCE RF: 0 Stand-Alone Forms: Call Back Authorization, [facility] Discharge Orders: Discharge Order (Routine); Ordered 11/21/18 Ordered By: Maritza Delcid Admission Data Admit Date/Time: 11/20/18 07:59 Attending Provider: Maritza Delcid Admit Provider: Robert Hinton Primary Care Provider: Dusty Allen Jr Other Providers: Yahir Stevenson Service: Telemetry Medical Other Pending Studies at Discharge: No
[2018-11-21] MEDS ORDERED: INSULIN GLARGINE 100 UNIT/ML VIAL SC SCH (21:00)
[2018-11-22 06:11] LABS: Estimated Average Glucose 183 mg/dl
== END 2018-11-21 12:55 | disposition home or self-care (01) ==
LOC: ED 05:12 → 2N 05:12 → SUATTDRO 07:59 → 2N 08:20

== ENCOUNTER 2018-12-07 08:53 | Inpatient (IN) ==
[2018-12-07 09:30] LABS: Basophils # (auto) 0.02 K/uL (0-0.2); Basophils % (auto) 0.2 %; Eosinophils # (auto) 0.09 K/uL (0-0.5); Eosinophils % (auto) 0.7 %; Hematocrit (blood only) 27.3 % (42-52); Hemoglobin 8.7 g/dL (14.0-18.0); Immature Granulocytes # (auto) 0.07 K/uL (0.00-0.02); Immature Granulocytes % (auto) 0.6 %; Lymphocytes # (auto) 1.69 K/uL (1.2-3.4); Lymphocytes % (auto) 13.7 %; Mean Corpuscular Hemoglobin 26.3 pg (25-34); Mean Corpuscular Hgb Conc 31.9 g/dL (32-36); Mean Corpuscular Volume 82.5 fL (80-100); Monocytes # (auto) 0.57 K/uL (0.11-0.59); Monocytes % (auto) 4.6 %; Neutrophils # (auto) 9.93 K/uL (1.4-6.5); Neutrophils % (auto) 80.2 %; Platelet Count 261 K/uL (130-400); RDW Coefficient of Variation 15.8 % (11.5-14.5); RDW Standard Deviation 46.8 fL (36.4-46.3); Red Blood Count 3.31 M/uL (4.7-6.1); White Blood Count 12.37 K/uL (4.8-10.8)
[2018-12-07 09:37] LABS: Appearance Urine Clear (Clear); Bilirubin Urine Negative (Negative); Blood Urine Negative (Negative); Color Urine Yellow; Glucose Urine UA 3+ (Negative); Ketones Urine Trace (Negative); Leukocyte Esterase Urine Negative (Negative); Nitrite Urine Negative (Negative); Protein Urine Negative (Negative); Specific Gravity Urine 1.031 (1.000-1.030); Urobilinogen Urine Negative (Negative)
[2018-12-07 09:47] LABS: Albumin Level 2.9 gm/dl (3.4-5.0); BUN Creatinine Ratio 39.4 (10-20); Calcium 8.4 mg/dl (8.5-10.1); Est GFR (African American) 59.6; Est GFR (Non-African American) 51.5; Potassium 4.8 mmol/L (3.5-5.1)
[2018-12-07] MEDS ORDERED: SODIUM CHLORIDE 0.9% 1000ML 500 ML IV ONE (09:55)
[2018-12-07 09:59] LABS: Beta-Hydroxybutyrate 2.51 mg/dl (0.2-2.81); Bilirubin,Total 0.4 mg/dl (0.2-1); Globulin 2.9 gm/dl (2.5-4.0); Total Protein 5.8 gm/dl (6.4-8.2)
[2018-12-07] MEDS ORDERED: INSULIN HUMAN REGULAR PER UNIT 10 UNITS in SYRINGE 0 ML SC STA (10:05)
[2018-12-07] MEDS ORDERED: SODIUM CHLORIDE 0.9% 1000ML 1,000 ML IV SCH (10:15)
[2018-12-07] MEDS ORDERED: NovoLIN-R INSULIN PER UNIT CHARGE ONE (10:32)
--- NOTE | 2018-12-07 10:52 | CT Scan Report ---
CT OF THE HEAD WITHOUT CONTRAST CLINICAL HISTORY: Altered mental status. COMPARISON STUDY: No previous studies for comparison. CT DOSE: 614.27 mGy.cm TECHNIQUE: Helical axial images of the head were obtained without IV contrast. Automated exposure con trol was utilized for the study. A dose lowering technique was utilized adhering to the principles o f ALARA. FINDINGS: No acute intracranial hemorrhage, midline shift or mass effect is present. The ventricular system is unremarkable. The basilar cisterns are patent. No extra-axial collections are present. Ther e are no findings to suggest acute dural sinus thrombosis or acute territorial infarct. No significan t calvarial abnormalities are present. Visualized portions of the sinuses and mastoid air cells are c lear. White matter hypodensities suggest small vessel disease. IMPRESSION: No acute intracranial findings. Electronically signed by: Juarez Cabrales M.D. 12/07/2018 10:51 AM
--- NOTE | 2018-12-07 11:02 | Emergency Department Note ---
ED Visit Note This patient was seen in concert with Dr. Hong and we discussed and agreed upon the history, physical, assessment and plan. See attending's note for details. . Resident Activity Tracking Resident Involvement: Resident Care Provided Care Provided: Adult ED
[2018-12-07] MEDS ORDERED: SODIUM CHLORIDE 0.9% 250 ML IV PRN ×2 (11:43→15:00)
[2018-12-07] MEDS ORDERED: PANTOprazole 80 MG in DEXTROSE 5% 100 ML IV SCH (12:00)
[2018-12-07 12:09] LABS: Hematocrit (blood only) 24.1 % (42-52); Hemoglobin 7.8 g/dL (14.0-18.0)
[2018-12-07] MEDS ORDERED: PANTOprazole 40 MG in DEXTROSE 5% 100 ML IV SCH (12:15)
--- NOTE | 2018-12-07 13:57 | History & Physical Report ---
Date of Service December 07, 2018 Assessment & Plan (1) GIB (gastrointestinal bleeding): Hb 8.7 -> 7.8 during ED course, noted to be heme + Hb on 11/22 at d/c was 13.3 PRBC 2 units pending Likely related to recent gastritis, although pt states abd resolved since d/c States ongoing use of protonix and sulcrafate Tylenol use noted GI c/s pending Was scheduled for routine c-scope via PCP in the next month or so Will hold home aspirin, but will need to continue plavix given recent stents (2) ARF (acute renal failure): Cr on d/c was 1.3 Cr on admission is 1.4 Monitor with IVF (3) CAD (coronary artery disease): Recent stenting last month x2 in [place] Will continue plavix despite above given new stents (4) Diabetes mellitus type 2, uncontrolled: Hyperglycemia noted in ED s/p additional insulin, IVF SSI PRN A1c pending, last was 08/2018 8.6 BHA is WNL, will not start DKA protocol (5) Hypertension: continue home meds (6) SOB (shortness of breath): Recently started an inhaler with PCP No formal PFTs or hx of pulm issues Monitor (7) Hypokalemia: Holding home K Monitor (8) Dyslipidemia: Holding statin (9) DVT prophylaxis: SCDs given above History of Present Illness Primary Care Provider: Dusty Allen Jr, DO 63 y/o M c/o hyperglycemia. Pt states he was at a [facility] last night and ate a large amount of ice cream and other foods that he would not usually eat. He came home and noted his BS was in the upper 200s, so he took 30 units SSI. He also took his usual 95 unit HS long acting insulin. He checked his BS later and it was still elevated, so he took another 30 units SSI. He rechecked around 1130p and his BS was 175. He went to bed. This AM he felt like his BS was low. He was sweating and hot feeling. He drank orange juice and checked his BS shortly after. It was over 600, so he came to the ED. Pt notes that he took tylenol x3 last night. He has used tylenol since d/c but states no additional aspirin Pt also notes that he was having issues with endurance while walking at the [facility] last night. He would walk for a bit but then feel as if his LE could not continue. He would rest and this would improve, but returned quickly. This is not a usual issues for him. He was also SOB ambulating to the bathroom in the ED today. While in the ED, he was noted to have a Hb of 8.7. He was noted to be heme + on rectal exam. Pt states he had black stool today. He is not certain if he had black stool prior to this. Pt has recently been having issues with abd pain. He was hospitalized 11/20-11/22 for LUQ. Hb was 13.3 on 11/22 and no bleeding. He had been on plavix and aspirin 81mg, but he had noted that he frequently took an extra 1-2 81mg aspirin if they fell out of the bottle that way lately "because if 1 is good, than 2-3 is better". He was dx with gastritis related to NSAID use and put on protonix BID and sulcrafate QID. He states that he has had bloating, but no further abd pain since his d/c. Pt has hx of c-scope, last was about 4-5 yrs ago. He is scheduled in the next month or so for routine c-scope. Pt had 2 stents placed in October in [place]. Pt denies fever, chest pain, n/v/c/d, LE pain or swelling. Allergies Allergy/AdvReac Type Severity Reaction Status Date / Time No Known Allergies Allergy Unknown Verified 12/07/18 10:04 Home Medications Home Medications Medication Instructions Recorded Confirmed Type ascorbic acid (vitamin C) 500 mg 500 mg PO BID tab 10/28/18 12/07/18 History tablet clopidogrel 75 mg tablet 75 mg PO QAM tab 10/28/18 12/07/18 History ergocalciferol (vitamin D2) 50,000 50,000 units PO WK cap 10/28/18 12/07/18 History unit capsule fluticasone 500 mcg-salmeterol 50 1 puffs INHALATION BID PRN ea 10/28/18 12/07/18 History mcg/dose blistr powdr for inhalation hydrochlorothiazide 12.5 mg tablet 12.5 mg PO QAM #90 tab 10/28/18 12/07/18 History isosorbide mononitrate ER 30 mg 30 mg PO QAM tab 10/28/18 12/07/18 History tablet,extended release 24 hr levomefolate Ca 3 mg-B6 35 1 cap PO BID 10/28/18 12/07/18 History mg-meB12 2 mg-algal oil 90.314 mg capsule lisinopril 20 mg tablet 20 mg PO QAM #90 tab 10/28/18 12/07/18 History metoprolol succinate ER 25 mg 25 mg PO QAM tab 10/28/18 12/07/18 History tablet,extended release 24 hr rosuvastatin 20 mg tablet 20 mg PO QPM 11/10/18 12/07/18 History vitamin E (dl, acetate) 400 unit 400 units PO QAM 11/10/18 12/07/18 History capsule insulin degludec (U-100) 100 95 units SQ HS ml 11/18/18 12/07/18 History unit/mL (3 mL) subcutaneous pen aspirin [Aspir-81] 81 mg PO QAM 11/20/18 12/07/18 History pantoprazole 40 mg PO BID #60 tab 11/21/18 12/07/18 Rx famotidine 20 mg PO BID #20 tab 11/22/18 12/07/18 Rx ondansetron 4 mg PO Q6H PRN #14 tab 11/22/18 12/07/18 Rx sucralfate [Carafate] 10 ml PO QID #420 ml 11/22/18 12/07/18 Rx fluvastatin 40 mg PO HS 12/07/18 12/07/18 History insulin lispro 1 sliding scale dose SUBCUT TID 12/07/18 12/07/18 History multivitamin 1 tab PO DAILY 12/07/18 12/07/18 History potassium 99 mg PO DAILY 12/07/18 12/07/18 History Past Med/Surg History Medical History Coronary artery disease Peripheral arterial disease Surgical History S/P coronary angiogram S/P coronary artery stent placement S/P peripheral artery angioplasty with stent placement Family History Father Stroke Other Diabetes Social History Preferred Language: Armenian Communication Ability: Effective 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 Beliefs That Will Affect Care: None Current Living Situation: Spouse Other Information That Helps Us Care for You: No Feels Safe at Home: Yes Safety Concerns: Feels Safe At This Time Smoking Status: Never smoker Second Hand Exposure: No ; Hx Alcohol Use: No Hx Substance Use: No Review of Systems Review of Systems: Pertinent positives and negatives reviewed in HPI--all others negative Physical Exam Constitutional: WD/WN, vitals as above Eyes: normal visual hodgson by confrontation and + anicteric sclerae Neck: normal visual inspection and trachea midline Respiratory: normal respiratory effort, lungs clear to auscultation Cardiovascular: Rate/Rhythm: regular rate and regular rhythm Gastrointestinal (Abdomen): Inspection/Auscultation: + abdomen distended Percussion/Palpation: abdomen soft; abdomen nontender Musculoskeletal: Head/Neck/Chest: normocephalic and head atraumatic negative for edema, peripheral pulses intact Skin: no rashes, warm and dry Neurologic: awake; not confused Speech / Cognition: normal speech Psychiatric: A+Ox3, euthymic affect Results & Data Vital Signs (Past 12 Hours) Vital Signs Pulse Resp BP Pulse Ox 12/07/18 13:15 84 19 99 12/07/18 13:01 81 19 97 12/07/18 13:00 84 19 154/67 H 99 12/07/18 12:45 80 15 97 12/07/18 12:31 80 19 98 12/07/18 12:30 81 20 149/65 H 96 12/07/18 12:18 80 20 100 12/07/18 12:17 83 20 160/72 H 96 12/07/18 12:16 99 12/07/18 12:01 83 17 99 12/07/18 12:00 83 17 155/76 H 99 12/07/18 11:45 83 15 100 12/07/18 11:30 85 22 100 12/07/18 11:15 81 16 96 12/07/18 11:02 81 18 128/68 95 12/07/18 11:01 82 17 93 12/07/18 11:00 82 18 128/68 98 12/07/18 10:59 80 17 12/07/18 10:30 81 25 H 12/07/18 10:15 84 17 12/07/18 10:10 85 12 12/07/18 09:08 80 20 120/72 97 12/07/18 09:02 81 16 89 L 12/07/18 09:00 80 18 140/[address] head: neg for acute ECG Additional Comments: PACs Code Status & VTE Plan Code Status Full code VTE Prophylaxis Plan VTE Prophylaxis will be ordered: Yes PG Care Time/CCT Total # of Minutes Spent Total Time Spent with Patient: Total time spent is greater than 50% in coordination of care (as documented) at patient's floor/unit and/or counseling patient:
--- NOTE | 2018-12-07 14:32 | Emergency Department Note ---
Entered by Dusty Parson acting as a scribe for History of Present Illness General Chief complaint: Hyperglycemia Stated complaint: hyperglycemia Source: patient History of Present Illness Provider complaint: Hyperglycemia Onset (ago): hour(s) (This morning) Location: head Pain Consistency: + constant Relieved By: + medication Exacerbated By: + none Associated symptoms: + headaches, + nausea/vomiting (No vomiting), + shortness of breath and + other (Dizzy, near syncope) The patient is a 63 year old male who presents to the Emergency Room with complaints of constant hyperglycemia that was noticed this morning. The patient states that he is a poorly controlled insulin dependent diabetic. He reports that last night he went to the [facility] and his sugars were around 175 so he took his normal dose of insulin. The patient notes that this morning when he woke up he felt nauseous and dizzy so he took his blood sugar and it was 600 which is much higher than his normal morning blood sugar of 110. The patient then called EMS while the patient had a near syncopal moment where he rested his head on the table. The patient reports that he does not remember anything after resting his head on the table. During this time the patient also felt short of breath, but denies any chest pain. The patient then took another 40 units of insulin and his sugar dropped to 448. Currently, the patient endorses a dull headache, and per his family, he is not talking normally. Home Medications Home Medications Medication Instructions Recorded Confirmed Type ascorbic acid (vitamin C) 500 mg 500 mg PO BID tab 10/28/18 12/07/18 History tablet clopidogrel 75 mg tablet 75 mg PO QAM tab 10/28/18 12/07/18 History ergocalciferol (vitamin D2) 50,000 50,000 units PO WK cap 10/28/18 12/07/18 History unit capsule fluticasone 500 mcg-salmeterol 50 1 puffs INHALATION BID PRN ea 10/28/18 12/07/18 History mcg/dose blistr powdr for inhalation hydrochlorothiazide 12.5 mg tablet 12.5 mg PO QAM #90 tab 10/28/18 12/07/18 History isosorbide mononitrate ER 30 mg 30 mg PO QAM tab 10/28/18 12/07/18 History tablet,extended release 24 hr levomefolate Ca 3 mg-B6 35 1 cap PO BID 10/28/18 12/07/18 History mg-meB12 2 mg-algal oil 90.314 mg capsule lisinopril 20 mg tablet 20 mg PO QAM #90 tab 10/28/18 12/07/18 History metoprolol succinate ER 25 mg 25 mg PO QAM tab 10/28/18 12/07/18 History tablet,extended release 24 hr rosuvastatin 20 mg tablet 20 mg PO QPM 11/10/18 12/07/18 History vitamin E (dl, acetate) 400 unit 400 units PO QAM 11/10/18 12/07/18 History capsule insulin degludec (U-100) 100 95 units SQ HS ml 11/18/18 12/07/18 History unit/mL (3 mL) subcutaneous pen aspirin [Aspir-81] 81 mg PO QAM 11/20/18 12/07/18 History pantoprazole 40 mg PO BID #60 tab 11/21/18 12/07/18 Rx famotidine 20 mg PO BID #20 tab 11/22/18 12/07/18 Rx ondansetron 4 mg PO Q6H PRN #14 tab 11/22/18 12/07/18 Rx sucralfate [Carafate] 10 ml PO QID #420 ml 11/22/18 12/07/18 Rx fluvastatin 40 mg PO HS 12/07/18 12/07/18 History insulin lispro 1 sliding scale dose SUBCUT TID 12/07/18 12/07/18 History multivitamin 1 tab PO DAILY 12/07/18 12/07/18 History potassium 99 mg PO DAILY 12/07/18 12/07/18 History Allergies Allergy/AdvReac Type Severity Reaction Status Date / Time No Known Allergies Allergy Unknown Verified 12/07/18 10:04 Past Med/Surg History Medical History Coronary artery disease Peripheral arterial disease Surgical History S/P coronary angiogram S/P coronary artery stent placement S/P peripheral artery angioplasty with stent placement Family History Father Stroke Other Diabetes Social History Preferred Language: Gibralt[place] Communication Ability: Effective Security Analyst Required: No Beliefs That Will Affect Care: None Current Living Situation: Spouse Feels Safe at Home: Yes Smoking Status: Never smoker Second Hand Exposure: No ; Hx Alcohol Use: No Hx Substance Use: No Review of Systems See HPI for pertinent positives & negatives. and A total of 10 systems reviewed and were otherwise negative Physical Exam Vital Signs Vital Signs - 24 hr 12/07/18 09:00 12/07/18 09:02 12/07/18 09:08 Sepsis Recent Fever Within 48 Hours No Sepsis New/Unexplained Change in Mental Status No Sepsis Action Taken by Nursing No Action Required Pulse Rate 80 81 80 Pulse Rate from SpO2 Sensor 81 81 Respiratory Rate 18 16 20 Blood Pressure 140/62 120/72 Blood Pressure Mean 88 88 Pulse Oximetry 96 89 L 97 Oxygen Delivery Method Room Air 12/07/18 10:10 12/07/18 10:15 12/07/18 10:30 Sepsis Recent Fever Within 48 Hours Sepsis New/Unexplained Change in Mental Status Sepsis Action Taken by Nursing Pulse Rate 85 84 81 Pulse Rate from SpO2 Sensor Respiratory Rate 12 17 25 H Blood Pressure Blood Pressure Mean Pulse Oximetry Oxygen Delivery Method 12/07/18 10:59 12/07/18 11:00 12/07/18 11:01 Sepsis Recent Fever Within 48 Hours Sepsis New/Unexplained Change in Mental Status Sepsis Action Taken by Nursing Pulse Rate 80 82 82 Pulse Rate from SpO2 Sensor 82 82 Respiratory Rate 17 18 17 Blood Pressure 128/68 Blood Pressure Mean 88 Pulse Oximetry 98 93 Oxygen Delivery Method 12/07/18 11:02 12/07/18 11:15 12/07/18 11:30 Sepsis Recent Fever Within 48 Hours Sepsis New/Unexplained Change in Mental Status Sepsis Action Taken by Nursing Pulse Rate 81 81 85 Pulse Rate from SpO2 Sensor 81 85 Respiratory Rate 18 16 22 Blood Pressure 128/68 Blood Pressure Mean 88 Pulse Oximetry 95 96 100 Oxygen Delivery Method Room Air 12/07/18 11:45 12/07/18 12:00 12/07/18 12:01 Sepsis Recent Fever Within 48 Hours Sepsis New/Unexplained Change in Mental Status Sepsis Action Taken by Nursing Pulse Rate 83 83 83 Pulse Rate from SpO2 Sensor 83 83 84 Respiratory Rate 15 17 17 Blood Pressure 155/76 H Blood Pressure Mean 102 Pulse Oximetry 100 99 99 Oxygen Delivery Method 12/07/18 12:16 12/07/18 12:17 12/07/18 12:18 Sepsis Recent Fever Within 48 Hours Sepsis New/Unexplained Change in Mental Status Sepsis Action Taken by Nursing Pulse Rate 83 80 Pulse Rate from SpO2 Sensor 80 82 80 Respiratory Rate 20 20 Blood Pressure 160/72 H Blood Pressure Mean 101 Pulse Oximetry 99 96 100 Oxygen Delivery Method 12/07/18 12:30 12/07/18 12:31 12/07/18 12:45 Sepsis Recent Fever Within 48 Hours Sepsis New/Unexplained Change in Mental Status Sepsis Action Taken by Nursing Pulse Rate 81 80 80 Pulse Rate from SpO2 Sensor 81 80 80 Respiratory Rate 20 19 15 Blood Pressure 149/65 H Blood Pressure Mean 93 Pulse Oximetry 96 98 97 Oxygen Delivery Method 12/07/18 13:00 12/07/18 13:01 12/07/18 13:15 Sepsis Recent Fever Within 48 Hours Sepsis New/Unexplained Change in Mental Status Sepsis Action Taken by Nursing Pulse Rate 84 81 84 Pulse Rate from SpO2 Sensor 84 82 84 Respiratory Rate 19 19 19 Blood Pressure 154/67 H Blood Pressure Mean 96 Pulse Oximetry 99 97 99 Oxygen Delivery Method 12/07/18 13:30 12/07/18 13:31 12/07/18 13:45 Sepsis Recent Fever Within 48 Hours Sepsis New/Unexplained Change in Mental Status Sepsis Action Taken by Nursing Pulse Rate 84 82 83 Pulse Rate from SpO2 Sensor 84 82 84 Respiratory Rate 15 22 18 Blood Pressure 153/77 H Blood Pressure Mean 102 Pulse Oximetry 97 97 98 Oxygen Delivery Method 12/07/18 14:00 12/07/18 14:01 Sepsis Recent Fever Within 48 Hours Sepsis New/Unexplained Change in Mental Status Sepsis Action Taken by Nursing Pulse Rate 83 84 Pulse Rate from SpO2 Sensor 82 85 Respiratory Rate 18 21 Blood Pressure 157/73 H Blood Pressure Mean 101 Pulse Oximetry 97 97 Oxygen Delivery Method Vital signs reviewed. General: Pale, well-appearing 63 year old male, in no significant distress. HEENT: No scleral icterus, PERRLA, neck supple. Atraumatic. Dry mucous membranes. Cardiovascular: Regular rate and rhythm, no extra sounds. Pulmonary: Clear to auscultation bilaterally, normal work of breathing. Abdomen: Soft, nontender, nondistended, positive bowel sounds. Rectal: Normal mucosa, melanotic stool Musculoskeletal: Atraumatic, no peripheral edema. Neurologic: Patient awake alert and oriented x 3, full strength in all 4 extremities. Cranial nerves 2 through 12 grossly intact. Skin: Warm, dry, no rash Course 0931: Past medical records reviewed. The patient was evaluated in room A09B, and a complete history and physical examination were performed. 1155: I reevaluated the patient and updated him on results. We also discussed the treatment plan and he agreed. 1215: I spoke to Dr. Davies [facility] Hospitalist about the patient's case. She is going to accept the patient for further evaluation. Consultations Consultation #1: I spoke to Dr. Davies [facility] Hospitalist about the patient's case. She is going to accept the patient for further evaluation. Time: 12:15 Administered Medications [facility]idog[facility] ([facility]ix) [facility]: 01/07/19 08:59 Last Admin: 12/08/18 12:47 Dose: Not Given Documented by: [id number] Hydrochlorothiazide (Hctz) 12.5 mg PO QAM [facility] Stop: 01/07/19 08:59 Last Admin: 12/08/18 08:50 Dose: 12.5 mg Documented by: [id number] Pantoprazole Sodium 40 mg/ (Syringe) 10 mls @ 5 mls/min IV BID@0900,2100 [facility] Stop: 01/06/19 20:59 Last Admin: 12/08/18 20:58 Dose: 5 mls/min Documented by: [id number] Admin: 12/08/18 08:50 Dose: 5 mls/min Documented by: [id number] Admin: 12/07/18 21:25 Dose: 5 mls/min Documented by: [id number] Sodium Chloride (1/2 Nss) 1,000 mls @ 120 mls/hr IV .Q8H20M [facility] Stop: 01/06/19 14:59 Last Admin: 12/08/18 17:23 Dose: Not Given Documented by: [id number] Admin: 12/08/18 16:00 Dose: 120 mls/hr Documented by: [id number] Infusion: 12/08/18 14:27 Dose: 120 mls/hr Documented by: [id number] Admin: 12/08/18 06:07 Dose: 120 mls/hr Documented by: [id number] Infusion: 12/08/18 06:07 Dose: 120 mls/hr Documented by: [id number] Infusion: 12/08/18 04:47 Dose: 120 mls/hr Documented by: [id number] Infusion: 12/07/18 23:36 Dose: 120 mls/hr Documented by: [id number] Infusion: 12/07/18 19:06 Dose: 0 mls/hr Documented by: [id number] Admin: 12/07/18 15:33 Dose: 120 mls/hr Documented by: [id number] Insulin Aspart (Novolog Flexpen) 0 units SC Q6 [facility] Stop: 01/07/19 00:00 Last Admin: 12/08/18 18:20 Dose: 13 units Documented by: [id number] Cosigned by: [id number] Admin: 12/08/18 13:28 Dose: 9 units Documented by: [id number] Cosigned by: [id number] Admin: 12/08/18 06:15 Dose: Not Given Documented by: [id number] Cosigned by: [id number] Admin: 12/08/18 00:18 Dose: Not Given Documented by: [id number] Isosorbide Mononitrate (Imdur Extended Rel) [facility] [place] Stop: 01/07/19 08:59 Last Admin: 12/08/18 08:51 Dose: 30 mg Documented by: [id number] Lisinopril (Zestril) 20 [facility] [place] Stop: 01/07/19 08:59 Last Admin: 12/08/18 08:54 Dose: 20 mg Documented by: [id number] Metoprolol Succinate (Toprol Xl) 25 [facility] [place] Stop: 01/07/19 08:59 Last Admin: 12/08/18 08:50 Dose: 25 mg Documented by: [id number] Polyethylene Glycol/Electrolytes (Golytely) 16 dose PO TODAY@1800 [facility] Stop: 12/09/18 06:30 Last Admin: 12/08/18 18:18 Dose: 16 dose Documented by: [id number] Discontinued Medications Sodium Chloride (Nss 1000ml) 500 mls @ 999 mls/hr IV .Q31M ONE Stop: 12/07/18 10:25 Last Infusion: 12/07/18 15:36 Dose: 0 mls/hr Documented by: [id number] Admin: 12/07/18 10:40 Dose: 999 mls/hr Documented by: [id number] Insulin Human Regular 10 units (/ Syringe) 0.1 mls @ 0.0033 mls/min SC NOW STA Stop: 12/07/18 10:06 Last Admin: 12/07/18 10:34 Dose: 0.0033 mls/min Documented by: [id number] Cosigned by: [id number] Sodium Chloride (Nss 1000ml) 1,000 mls @ 200 mls/hr IV .Q5H ROSALIA Stop: 01/06/19 10:14 Last Infusion: 12/07/18 15:32 Dose: 0 mls/hr Documented by: [id number] Admin: 12/07/18 12:13 Dose: 200 mls/hr Documented by: [id number] Pantoprazole Sodium 80 mg/ (Dextrose) 120 mls @ 480 mls/hr IV 1200 ROSALIA Stop: 12/07/18 12:14 Last Infusion: 12/07/18 16:42 Dose: 0 mls/hr Documented by: [id number] Admin: 12/07/18 12:02 Dose: 480 mls/hr Documented by: [id number] Pantoprazole Sodium 40 mg/ (Dextrose) 100 mls @ 20 mls/hr IV Q5H [facility]AL[facility] Stop: 12/07/18 17:14 Last Infusion: 12/07/18 17:07 Dose: 0 mls/hr Documented by: [id number] Admin: 12/07/18 12:03 Dose: 20 mls/hr Documented by: [id number] Insulin Aspart (Novolog Flexpen) 0 units SC ACHS ROS[facility]IA Stop: 01/06/19 16:29 Last Admin: 12/07/18 17:18 Dose: 10 units Documented by: [id number] Cosigned by: [id number] Insulin Human Regular (Novolin R U-100 Per Unit) Confirm Administered Dose 10 units .ROUTE .STK-MED ONE Stop: 12/07/18 10:33 Last Admin: 12/07/18 10:47 Dose: Not Given Documented by: [id number] Medical Decision Making Differential Diagnosis Differential Diagnosis includes but is not limited to dehydration, stroke, anemia, hypoglycemia, hyponatremia, hypernatremia, urinary tract infection, pneumonia, bronchitis, sepsis, gastroenteritis, additional abdominal pathology, metabolic abnormalities and infections. Medical Records Attestation: I reviewed the patient's medical records. Home Medications Current Medication List: was personally reviewed by me Laboratory Data Attestation: I reviewed the patient's lab results. Result diagrams: 12/08/18 06:02 12/08/18 06:02 Lab Results 12/07/18 12/07/18 12/07/18 Range/Units 09:00 09:20 09:20 WBC 12.37 H (4.8-10.8) K/uL RBC 3.31 L (4.7-6.1) M/uL Hgb 8.7 L (14.0-18.0) g/dL Hct 27.3 L (42-52) % MCV 82.5 (80-100) fL MCH 26.3 (25-34) pg MCHC 31.9 L (32-36) g/dL RDW Std Deviation 46.8 H (36.4-46.3) fL RDW Coeff of Leigh Ann 15.8 H (11.5-14.5) % Plt Count 261 (130-400) K/uL MPV 10.0 (7.4-10.4) fL Immature Gran % (Auto) 0.6 % Neut % (Auto) 80.2 % Lymph % (Auto) 13.7 % Swain % (Auto) 4.6 % Eos % (Auto) 0.7 % Baso % (Auto) 0.2 % Immature Gran # (Auto) 0.07 H (0.00-0.02) K/uL Neut # (Auto) 9.93 H (1.4-6.5) K/uL Lymph # (Auto) 1.69 (1.2-3.4) K/uL Swain # (Auto) 0.57 (0.11-0.59) K/uL Eos # (Auto) 0.09 (0-0.5) K/uL Baso # (Auto) 0.02 (0-0.2) K/uL Sodium 139 (136-145) mmol/L Potassium 4.8 (3.5-5.1) mmol/L Chloride 107 (98-107) mmol/L Carbon Dioxide 24 (21-32) mmol/L Anion Gap 8.0 (3-11) BUN 56 H (7-18) mg/dl Creatinine 1.42 H (0.6-1.4) mg/dl Est Cr Clr Drug Dosing 67.0 ml/min Est GFR ( Amer) 59.6 Est GFR (Non-Af Amer) 51.5 BUN/Creatinine Ratio 39.4 H (10-20) Glucose 425 H* (70-99) mg/dl POC Glucose 449 H* (70-99) Calcium 8.4 L (8.5-10.1) mg/dl Total Bilirubin 0.4 (0.2-1) mg/dl AST 10 L (15-37) U/L ALT 24 (12-78) U/L Alkaline Phosphatase 66 (45-117) U/L Total Protein 5.8 L (6.4-8.2) gm/dl Albumin 2.9 L (3.4-5.0) gm/dl Globulin 2.9 (2.5-4.0) gm/dl Albumin/Globulin Ratio 1.0 (0.9-2) Beta-Hydroxybutyric Acd 2.51 (0.2-2.81) mg/dl Urine Color Urine Appearance (Clear) Urine pH (4.5-7.5) Ur Specific Blevins (1.000-1.030) Urine Protein (Negative) Urine Glucose (UA) (Negative) Urine Ketones (Negative) Urine Blood (Negative) Urine Nitrite (Negative) Urine Bilirubin (Negative) Urine Urobilinogen (Negative) Ur Leukocyte Esterase (Negative) Blood Type Blood Type Recheck Antibody Screen Crossmatch 12/07/18 12/07/18 12/07/18 Range/Units 09:27 10:35 11:23 WBC (4.8-10.8) K/uL RBC (4.7-6.1) M/uL Hgb (14.0-18.0) g/dL Hct (42-52) % MCV (80-100) fL MCH (25-34) pg MCHC (32-36) g/dL RDW Std Deviation (36.4-46.3) fL RDW Coeff of Leigh Ann (11.5-14.5) % Plt Count (130-400) K/uL MPV (7.4-10.4) fL Immature Gran % (Auto) % Neut % (Auto) % Lymph % (Auto) % Swain % (Auto) % Eos % (Auto) % Baso % (Auto) % Immature Gran # (Auto) (0.00-0.02) K/uL Neut # (Auto) (1.4-6.5) K/uL Lymph # (Auto) (1.2-3.4) K/uL Swain # (Auto) (0.11-0.59) K/uL Eos # (Auto) (0-0.5) K/uL Baso # (Auto) (0-0.2) K/uL Sodium (136-145) mmol/L Potassium (3.5-5.1) mmol/L Chloride (98-107) mmol/L Carbon Dioxide (21-32) mmol/L Anion Gap (3-11) BUN (7-18) mg/dl Creatinine (0.6-1.4) mg/dl Est Cr Clr Drug Dosing ml/min Est GFR ( Amer) Est GFR (Non-Af Amer) BUN/Creatinine Ratio (10-20) Glucose (70-99) mg/dl POC Glucose 440 H* 338 H* (70-99) Calcium (8.5-10.1) mg/dl Total Bilirubin (0.2-1) mg/dl AST (15-37) U/L ALT (12-78) U/L Alkaline Phosphatase (45-117) U/L Total Protein (6.4-8.2) gm/dl Albumin (3.4-5.0) gm/dl Globulin (2.5-4.0) gm/dl Albumin/Globulin Ratio (0.9-2) Beta-Hydroxybutyric Acd (0.2-2.81) mg/dl Urine Color Yellow Urine Appearance Clear (Clear) Urine pH 5.0 (4.5-7.5) Ur Specific Blevins 1.031 H (1.000-1.030) Urine Protein Negative (Negative) Urine Glucose (UA) 3+ H (Negative) Urine Ketones Trace H (Negative) Urine Blood Negative (Negative) Urine Nitrite Negative (Negative) Urine Bilirubin Negative (Negative) Urine Urobilinogen Negative (Negative) Ur Leukocyte Esterase Negative (Negative) Blood Type Blood Type Recheck Antibody Screen Crossmatch 12/07/18 12/07/18 12/07/18 Range/Units 11:56 11:56 13:02 WBC (4.8-10.8) K/uL RBC (4.7-6.1) M/uL Hgb 7.8 L (14.0-18.0) g/dL Hct 24.1 L (42-52) % MCV (80-100) fL MCH (25-34) pg MCHC (32-36) g/dL RDW Std Deviation (36.4-46.3) fL RDW Coeff of Leigh Ann (11.5-14.5) % Plt Count (130-400) K/uL MPV (7.4-10.4) fL Immature Gran % (Auto) % Neut % (Auto) % Lymph % (Auto) % Swain % (Auto) % Eos % (Auto) % Baso % (Auto) % Immature Gran # (Auto) (0.00-0.02) K/uL Neut # (Auto) (1.4-6.5) K/uL Lymph # (Auto) (1.2-3.4) K/uL Swain # (Auto) (0.11-0.59) K/uL Eos # (Auto) (0-0.5) K/uL Baso # (Auto) (0-0.2) K/uL Sodium (136-145) mmol/L Potassium (3.5-5.1) mmol/L Chloride (98-107) mmol/L Carbon Dioxide (21-32) mmol/L Anion Gap (3-11) BUN (7-18) mg/dl Creatinine (0.6-1.4) mg/dl Est Cr Clr Drug Dosing ml/min Est GFR ( Amer) Est GFR (Non-Af Amer) BUN/Creatinine Ratio (10-20) Glucose (70-99) mg/dl POC Glucose (70-99) Calcium (8.5-10.1) mg/dl Total Bilirubin (0.2-1) mg/dl AST (15-37) U/L ALT (12-78) U/L Alkaline Phosphatase (45-117) U/L Total Protein (6.4-8.2) gm/dl Albumin (3.4-5.0) gm/dl Globulin (2.5-4.0) gm/dl Albumin/Globulin Ratio (0.9-2) Beta-Hydroxybutyric Acd (0.2-2.81) mg/dl Urine Color Urine Appearance (Clear) Urine pH (4.5-7.5) Ur Specific Blevins (1.000-1.030) Urine Protein (Negative) Urine Glucose (UA) (Negative) Urine Ketones (Negative) Urine Blood (Negative) Urine Nitrite (Negative) Urine Bilirubin (Negative) Urine Urobilinogen (Negative) Ur Leukocyte Esterase (Negative) Blood Type B Positive Blood Type Recheck B Positive Antibody Screen NEGATIVE Crossmatch See Detail Imaging Data Radiologist's Impression: Radiology results as stated below per my review and the radiologist's interpretation: CT OF THE HEAD WITHOUT CONTRAST CLINICAL HISTORY: Altered mental status. COMPARISON STUDY: No previous studies for comparison. CT DOSE: 614.27 mGy.cm TECHNIQUE: Helical axial images of the head were obtained without IV contrast. Automated exposure control was utilized for the study. A dose lowering technique was utilized adhering to the principles of ALARA. FINDINGS: No acute intracranial hemorrhage, midline shift or mass effect is present. The ventricular system is unremarkable. The basilar cisterns are pat ent. No extra-axial collections are present. There are no findings to suggest acute dural sinus thrombosis or acute territorial infarct. No significant calvarial abnormalities are present. Visualized portions of the sinuses and mastoid air cells are clear. White matter hypodensities suggest small vessel disease. IMPRESSION: No acute intracranial findings. Electronically signed by: Juarez Cabrales M.D. 12/07/2018 10:51 AM ECG Data Attestation: I personally reviewed and interpreted this ECG as follows: Indication: other (GI bleed ) Rate (beats per minute): 82 Rhythm: sinus rhythm Findings: + other (QTC 469) and + PAC; no ST depression, no ST elevation and no acute ischemic change Blood Pressure Blood Pressure Findings: Elevated blood pressure Blood Pressure Disposition: Referred to patients primary care provider MDM Narrative This patient was evaluated and appeared to be in no significant distress. Physical examination is significant for somewhat pale appearance. Patient was awake and speaking clearly on my evaluation. IV hydration was initiated. Laboratory work was obtained and is notable for hemoglobin of 8.7 and marked hyperglycemia. Patient was given 10 units of subcutaneous regular insulin. Rectal exam was performed and is heme positive. Patient states he has had some epigastric abdominal pain and dark stools intermittently for several weeks. IV Protonix was initiated. The patient was typed and crossed for 2 units PRBCs. Patient was informed of the findings and plan. Patient's case was discussed with the hospitalist service. He will be evaluated for further management. Impression & Plan Hyperglycemia, Upper GI bleed Discharge Plan Visit Data *Final* Discharge Date/Time: 12/07/18 14:38 Chief Complaint: Hyperglycemia Stated Complaint: hyperglycemia ED Provider: Elizabeth Marcelino Discharge Problem: Hyperglycemia, Upper GI bleed Patient Disposition: Admitted As Inpatient Discharge Instructions Interventions: ED Discharge Assessment Last Done: 12/07/18 14:38 The scribe's documentation has been prepared under my direction and personally reviewed by me in its entirety. I confirm that the note above accurately reflects all work, treatment, procedures, and medical decision making performed by me.
[2018-12-07] MEDS ORDERED: FLUTICASONE/SALMETEROL (ADVAIR) 500/50 INH 14 PUFF INH PRN (15:00)
[2018-12-07] MEDS ORDERED: ACETAMINOPHEN 325 MG TAB PO PRN (15:00)
[2018-12-07] MEDS ORDERED: GLUCAGON FOR INJ 1 MG VIAL SQ PRN (15:00)
[2018-12-07] MEDS ORDERED: MAGNESIUM HYDROXIDE SUSP 30 ML UDC PO PRN (15:00)
[2018-12-07] MEDS ORDERED: GLUCOSE 40% GEL 15 GM TUBE PO PRN (15:00)
[2018-12-07] MEDS ORDERED: CARBOHYDRATES FOR HYPOGLYCEMIA PO PRN (15:00)
[2018-12-07] MEDS ORDERED: ONDANSETRON INJ 2 MG/ML 2 ML VIAL IV PRN (15:00)
[2018-12-07] MEDS ORDERED: DEXTROSE 50% 50 ML SYRINGE IV PRN (15:00)
[2018-12-07] MEDS ORDERED: GLUCOSE 10 TABS/TUBE PO PRN (15:00)
[2018-12-07] MEDS: SODIUM CHLORIDE 0.45 % 1,000 ML IV SCH (15:33)
[2018-12-07] MEDS ORDERED: INSULIN ASPART 100 UNITS/ML 3 ML PEN SC SCH (16:30)
[2018-12-07] MEDS: PANTOprazole 40 MG in SYRINGE 0 ML IV SCH (21:25)
[2018-12-08] MEDS: INSULIN ASPART 100 UNITS/ML 3 ML PEN SC SCH ×5 (00:18→23:41)
[2018-12-08 00:30] LABS: Hematocrit (blood only) 28.9 % (42-52); Hemoglobin 9.4 g/dL (14.0-18.0)
[2018-12-08] MEDS: SODIUM CHLORIDE 0.45 % 1,000 ML IV SCH ×4 (06:07→23:43)
[2018-12-08 06:24] LABS: Basophils # (auto) 0.01 K/uL (0-0.2); Basophils % (auto) 0.1 %; Eosinophils # (auto) 0.18 K/uL (0-0.5); Hematocrit (blood only) 29.8 % (42-52); Hemoglobin 9.9 g/dL (14.0-18.0); Immature Granulocytes # (auto) 0.04 K/uL (0.00-0.02); Immature Granulocytes % (auto) 0.4 %; Lymphocytes % (auto) 16.6 %; Mean Corpuscular Hemoglobin 26.8 pg (25-34); Mean Corpuscular Hgb Conc 33.2 g/dL (32-36); Mean Corpuscular Volume 80.5 fL (80-100); Mean Platelet Volume 10.1 fL (7.4-10.4); Monocytes # (auto) 0.51 K/uL (0.11-0.59); Monocytes % (auto) 5.7 %; Neutrophils # (auto) 6.78 K/uL (1.4-6.5); Neutrophils % (auto) 75.2 %; Platelet Count 202 K/uL (130-400); RDW Standard Deviation 46.3 fL (36.4-46.3); White Blood Count 9.02 K/uL (4.8-10.8)
[2018-12-08 06:55] LABS: Creatinine Clr Calc Pharmacy 90.6 ml/min; Est GFR (African American) 85.9; Est GFR (Non-African American) 74.1; Estimated Average Glucose 146 mg/dl; Hemoglobin A1C 6.7 % (4.5-5.6); Potassium 3.7 mmol/L (3.5-5.1)
[2018-12-08] MEDS: METOPROLOL SUCC 25MG EXT REL TAB PO SCH (08:50)
[2018-12-08] MEDS: PANTOprazole 40 MG in SYRINGE 0 ML IV SCH ×2 (08:50→20:58)
[2018-12-08] MEDS: hydroCHLOROthiazide 25 MG TAB PO SCH (08:50)
[2018-12-08] MEDS: ISOSORBIDE MONO EXTENDED REL 30 MG TABCR PO SCH (08:51)
[2018-12-08] MEDS: lisinopriL 20 MG TAB PO SCH (08:54)
--- NOTE | 2018-12-08 09:42 | Gastrointestinal Consultation ---
Date of Consultation December 08, 2018 Assessment & Plan (1) GIB (gastrointestinal bleeding): Suspect upper GI bleed given Aspirin use, melena, and heartburn symptoms, however upon further questioning he also endorses some BRBPR and is overdue for his colonoscopy. He is anemic dropping from 13.3/39.8 on 11/22/2018 to 7.8/24.1 upon presentation to the ED. He received 2 units PRBCs and is now at 9.9/29.8. -Proceed with EGD & colonoscopy tomorrow (12/09) -Protonix 40 mg IV BID as upper GI bleeding source is suspected -Plavix held -Clear liquid diet today, NPO after midnight with exception of prep -Further recommendations pending results of testing -Continue to monitor H/H Thank you for allowing us to participate in the care of this patient. If you should have any further questions or concerns, do not hesitate to contact us at extension [phone] or [phone]. Present on Admission?: Yes Supervising Physician Co-Signing Physician Notes Agree with SAUNDRA Mireles as above Abd: Soft, NT, ND, +BS Bowel prep tonight EGD and Colonoscopy in AM with Dr. Castaneda Continue current therapy History of Present Illness Reason for Consultation: GI bleed Attending Physician: Cezar Mcintyre DO History of Present Illness Patient is a 63 yo male with a past medical history of type 2 diabetes mellitus complicated by neuropathy, CAD, microcytic anemia, hypertension & obesity who presented to the ED with generalized weakness, elevated blood sugars, & dark stools. He reports that he has not had true abdominal pain recently, but notes that his stool was particularly dark yesterday. He has had episodes of BRBPR intermittently as well. On 11/22/2018, his H/H was 13.3/39.8 and it had dropped to 7.8/24.1 upon presentation to the ER yesterday. He was transfused 2 units PRBCs and H/H is presently 9.9/29.8. He has not had any rectal bleeding or melanotic stool since admission. He reports heartburn and reflux for which he takes Protonix 40 mg BID. He was reportedly taking Carafate as well. He has a history of gastritis per his reports. He uses Plavix & Aspirin daily. He reports he occasionally takes more than 1 Aspirin daily. He reports he previously had used Ibuprofen often but has not been doing this as of late. He has been using Tylenol. At present, he is denying abdominal pain. He denies diarrhea or constipation. He reports his heartburn has improved. He denies family history of GI malignancy or IBD. He had a colonoscopy in 2012 that indicated 2 tubular adenomas. He was instructed to repeat in 2018. He did not have this done, but is scheduled for an outpatient EGD & colonoscopy on 01/04/2019. Allergies Allergy/AdvReac Type Severity Reaction Status Date / Time No Known Allergies Allergy Unknown Verified 12/07/18 10:04 Home Medications Home Medications Medication Instructions Recorded Confirmed Type ascorbic acid (vitamin C) 500 mg 500 mg PO BID tab 10/28/18 12/07/18 History tablet clopidogrel 75 mg tablet 75 mg PO QAM tab 10/28/18 12/07/18 History ergocalciferol (vitamin D2) 50,000 50,000 units PO WK cap 10/28/18 12/07/18 History unit capsule fluticasone 500 mcg-salmeterol 50 1 puffs INHALATION BID PRN ea 10/28/18 12/07/18 History mcg/dose blistr powdr for inhalation hydrochlorothiazide 12.5 mg tablet 12.5 mg PO QAM #90 tab 10/28/18 12/07/18 History isosorbide mononitrate ER 30 mg 30 mg PO QAM tab 10/28/18 12/07/18 History tablet,extended release 24 hr levomefolate Ca 3 mg-B6 35 1 cap PO BID 10/28/18 12/07/18 History mg-meB12 2 mg-algal oil 90.314 mg capsule lisinopril 20 mg tablet 20 mg PO QAM #90 tab 10/28/18 12/07/18 History metoprolol succinate ER 25 mg 25 mg PO QAM tab 10/28/18 12/07/18 History tablet,extended release 24 hr rosuvastatin 20 mg tablet 20 mg PO QPM 11/10/18 12/07/18 History vitamin E (dl, acetate) 400 unit 400 units PO QAM 11/10/18 12/07/18 History capsule insulin degludec (U-100) 100 95 units SQ HS ml 11/18/18 12/07/18 History unit/mL (3 mL) subcutaneous pen aspirin [Aspir-81] 81 mg PO QAM 11/20/18 12/07/18 History pantoprazole 40 mg PO BID #60 tab 11/21/18 12/07/18 Rx famotidine 20 mg PO BID #20 tab 11/22/18 12/07/18 Rx ondansetron 4 mg PO Q6H PRN #14 tab 11/22/18 12/07/18 Rx sucralfate [Carafate] 10 ml PO QID #420 ml 11/22/18 12/07/18 Rx fluvastatin 40 mg PO HS 12/07/18 12/07/18 History insulin lispro 1 sliding scale dose SUBCUT TID 12/07/18 12/07/18 History multivitamin 1 tab PO DAILY 12/07/18 12/07/18 History potassium 99 mg PO DAILY 12/07/18 12/07/18 History Patient History Medical History Coronary artery disease Peripheral arterial disease Surgical History S/P coronary angiogram S/P coronary artery stent placement S/P peripheral artery angioplasty with stent placement Family History Father Stroke Other Diabetes Social History Preferred Language: Turkish Communication Ability: Effective Piece Cutter Required: No Beliefs That Will Affect Care: None Current Living Situation: Spouse Feels Safe at Home: Yes Smoking Status: Never smoker Second Hand Exposure: No ; Hx Alcohol Use: No Hx Substance Use: No Review of Systems Constitutional: no fever and no chills Eyes: no acute complaints Ear, Nose, Mouth, Throat: no acute complaints Respiratory: no cough and no dyspnea Cardiovascular: no chest pain Gastrointestinal: + heartburn (improved), + blood in stools and + melena; no abdominal pain, no coffee ground emesis, no dysphagia and no change in bowel habits Integumentary: no rash Neurologic: dizziness, weakness overall Psychiatric: no acute complaints Endocrine: easy bleeding Physical Exam Constitutional: WD/WN, vitals as above Eyes: PERRL, conjunctivae normal, anicteric sclerae ENMT: external ear and nose normal, oropharynx normal Neck: normal visual inspection Respiratory: normal respiratory effort, lungs clear to auscultation Cardiovascular: RRR, no murmur, no edema Gastrointestinal (Abdomen): normal bowel sounds, soft, nontender, no hepatosplenomegaly Musculoskeletal: no cyanosis or clubbing, extremities motor strength 5/5 Skin: no rashes, warm and dry Neurologic: Speech / Cognition: normal speech Psychiatric: A+Ox3, euthymic affect Results & Data Vital Signs (Past 12 Hours) Vital Signs Temp Pulse Pulse Resp BP BP BP 12/08/18 07:46 36.6 C 88 20 170/78 H 12/08/18 03:11 36.5 C 88 18 180/78 H 12/07/18 23:35 88 12/07/18 23:20 36.4 C L 81 18 152/71 H 12/07/18 22:20 36.7 C 90 16 156/71 H 12/07/18 21:50 36.8 C 84 18 145/65 H Pulse Ox 12/08/18 07:46 98 12/08/18 03:11 98 12/07/18 23:35 12/07/18 23:20 99 12/07/18 22:20 99 12/07/18 21:50 98 PG Care Time/CCT Total # of Minutes Spent Total Time Spent with Patient: Total time spent is greater than 50% in coordination of care (as documented) at patient's floor/unit and/or counseling patient: (1) GIB (gastrointestinal bleeding) GI bleed type/associated pathology: unspecified gastrointestinal hemorrhage type Qualified Code(s): K92.2 - Gastrointestinal hemorrhage, unspecified
[2018-12-08] MEDS: CLOPIDOGREL BISULFATE 75 MG TAB PO SCH (12:47)
--- NOTE | 2018-12-08 15:31 | Hospitalist Progress Note ---
Date of Service December 08, 2018 Assessment & Plan (1) GIB (gastrointestinal bleeding): With acute blood loss anemia now status post 2 units transfusion Symptoms seem to fit the best with upper GI bleed/peptic ulcer disease spectrumcontinue acid suppression Given that he is hemodynamically stable and his hemoglobin improved appropriately with transfusion, continue some semblance of antiplatelet regimen as best as safely can be done (see below under coronary disease) (2) ARF (acute renal failure): KAYDEN related to anemiaimproved. (3) CAD (coronary artery disease): Recent stenting last month x2 in [place] Continue Plavix for now as above given that he is hemodynamically stable and clinically the bleeding seems to have either stopped or at least dramatically slowed, awaiting callback from his sales representative publications for better guidance in regards to his stents specifically. Fortunately currently no anginal symptoms. (4) Diabetes mellitus type 2, uncontrolled: A1c right now drastically different than the entirety of A1c is available for review, suspect falsely low and question whether this relates to his acute blood loss anemia. This especially so given that his A1c was dramatically higher only only a few weeks ago. Extensive discussion on lifestyle management, focusing on simple carbohydrates. He expressed good understanding. (5) Hypertension: Blood pressure is reasonable, continue current medicines, low threshold to hold in light of his GI bleeding, but right now stable. (6) SOB (shortness of breath): Recently started an inhaler with PCP No formal PFTs or hx of pulm issues No shortness of breath (7) Hypokalemia: Continue to follow (8) Dyslipidemia: Holding statin (9) DVT prophylaxis: SCDspharmacologic contraindicated given GI bleeding Subjective Feeling okay overall. No melena or hematochezia since last night, no bowel movements at all. Stomach still hurts some. Seems to be more tolerable. No chest pain or shortness of breath, reviewed what his angina felt like prior to his last heart cath, and he denies having any similar symptoms. In updating the patient on his current situation and the difficulty in balancing GI bleeding with new stents, we get into an extensive discussion on lifestyle changes that would help benefit him as it relates to his coronary artery disease. Patient noted stents about a month ago, uncertain what kind. Noted that his sales representative publications told him he needed to work on his cholesterol. Placed a call to his sales representative publications, definitely need to discuss this stenting, and what would be the safest, the optimal, and the minimal, as it relates to his antiplatelet therapy in the context of this current GI bleeding. Review of Systems Review of Systems: All systems reviewed & are unremarkable except as noted in HPI & below Physical Exam Physical Exam: General he is awake alert oriented pleasant no distress. HEENT normocephalic atraumatic mucous members are moist. Cardio is regular no rubs murmurs gallops. Lungs are clear no rales rhonchi or wheezes good effort no accessory muscle use. Abdomen is soft he does have epigastric tenderness without guarding rebound or rigidity. Extremities show no cyanosis clubbing or edema, no calf tenderness. Neuro shows no focal deficits. Results & Data Vital Signs (Past 12 Hours) Vital Signs Temp Pulse Pulse Resp BP Pulse Ox 12/08/18 12:27 97.9 F 89 20 127/68 99 12/08/18 10:15 134/63 12/08/18 09:50 81 12/08/18 07:46 97.9 F 88 20 170/78 H 98 PG Care Time/CCT Total # of Minutes Spent Total Time Spent with Patient: Total time spent is greater than 50% in coordination of care (as documented) at patient's floor/unit and/or counseling patient: (1) GIB (gastrointestinal bleeding) GI bleed type/associated pathology: unspecified gastrointestinal hemorrhage type Qualified Code(s): K92.2 - Gastrointestinal hemorrhage, unspecified
[2018-12-08] MEDS ORDERED: LAVAGE SOLUTION 4000ML PO SCH (18:00)
[2018-12-09 00:52] LABS: Hematocrit (blood only) 27.6 % (42-52)
[2018-12-09] MEDS: INSULIN ASPART 100 UNITS/ML 3 ML PEN SC SCH ×4 (06:02→20:39)
--- NOTE | 2018-12-09 08:23 | History & Physical Bridge Note ---
Date of Service December 09, 2018 History & Physical Bridge Note I have examined the patient, reviewed the History & Physical and in the interval since the performance of the History & Physical I have noted the following changes of clinical significance: no changes noted Proceed with EGD and colonoscopy risks/benefits and procedure discussed with patient, who agrees to proceed
[2018-12-09] MEDS: PANTOprazole 40 MG in SYRINGE 0 ML IV SCH ×2 (08:27→20:39)
--- NOTE | 2018-12-09 08:43 | Anesthesiology Consultation ---
Date of Service December 09, 2018 Assessment & Plan (1) Encounter for pre-operative examination: History Surgery Operation Date: 12/09/18 08:30 Proposed Procedures p Colonoscopy EGD Dr. Tonya Castaneda MD Height/Weight Height: 6 ft Weight: 110.4 kg Allergies Allergy/AdvReac Type Severity Reaction Status Date / Time No Known Allergies Allergy Unknown Verified 12/07/18 10:04 Medications Home Medications Medication Instructions Recorded Confirmed Last Taken ascorbic acid (vitamin C) 500 mg 500 mg PO BID tab 10/28/18 12/07/18 11/19/18 tablet clopidogrel 75 mg tablet 75 mg PO QAM tab 10/28/18 12/07/18 11/19/18 ergocalciferol (vitamin D2) 50,000 50,000 units PO WK cap 10/28/18 12/07/18 Un known unit capsule fluticasone 500 mcg-salmeterol 50 1 puffs INHALATION BID PRN ea 10/28/18 12/07/18 Unknown mcg/dose blistr powdr for inhalation hydrochlorothiazide 12.5 mg tablet 12.5 mg PO QAM #90 tab 10/28/18 12/07/18 11/19/18 isosorbide mononitrate ER 30 mg 30 mg PO QAM tab 10/28/18 12/07/18 11/19/18 tablet,extended release 24 hr levomefolate Ca 3 mg-B6 35 1 cap PO BID 10/28/18 12/07/18 11/19/18 mg-meB12 2 mg-algal oil 90.314 mg capsule lisinopril 20 mg tablet 20 mg PO QAM #90 tab 10/28/18 12/07/18 11/19/18 metoprolol succinate ER 25 mg 25 mg PO QAM tab 10/28/18 12/07/18 11/19/18 tablet,extended release 24 hr rosuvastatin 20 mg tablet 20 mg PO QPM 11/10/18 12/07/18 11/19/18 vitamin E (dl, acetate) 400 unit 400 units PO QAM 11/10/18 12/07/18 11/19/18 capsule insulin degludec (U-100) 100 95 units SQ HS ml 11/18/18 12/07/18 11/19/18 unit/mL (3 mL) subcutaneous pen aspirin [Aspir-81] 81 mg PO QAM 11/20/18 12/07/18 11/19/18 pantoprazole 40 mg PO BID #60 tab 11/21/18 12/07/18 Unknown famotidine 20 mg PO BID #20 tab 11/22/18 12/07/18 Unknown ondansetron 4 mg PO Q6H PRN #14 tab 11/22/18 12/07/18 Unknown sucralfate [Carafate] 10 ml PO QID #420 ml 11/22/18 12/07/18 Unknown fluvastatin 40 mg PO HS 12/07/18 12/07/18 Unknown insulin lispro 1 sliding scale dose SUBCUT TID 12/07/18 12/07/18 Unknown multivitamin 1 tab PO DAILY 12/07/18 12/07/18 Unknown potassium 99 mg PO DAILY 12/07/18 12/07/18 Unknown Active Medications Generic Name Dose Route Start Last Admin Trade Name Freq PRN Reason Stop Dose Admin Clopidogrel Bisulfate 75 mg 12/08/18 09:00 12/08/18 12:47 Plavix PO 01/07/19 08:59 Not Given QAM ROSALIA Hydrochlorothiazide 12.5 mg 12/08/18 09:00 12/08/18 08:50 Hctz PO 01/07/19 08:59 12.5 mg QAM ROSALIA Administration Pantoprazole Sodium 40 mg/ 10 mls @ 5 mls/min 12/07/18 21:00 12/09/18 08:27 Syringe IV 01/06/19 20:59 5 mls/min BID@0900,2100 ROSALIA Administration Sodium Chloride 1,000 mls @ 120 mls/hr 12/07/18 15:00 12/09/18 08:03 1/2 Nss IV 01/06/19 14:59 Infused .Q8H20M ROSALIA Infusion Insulin Aspart 0 units 12/08/18 00:00 12/09/18 06:02 Novolog Flexpen SC 01/07/19 00:00 Not Given Q6 ROSALIA Isosorbide Mononitrate 30 mg 12/08/18 09:00 12/08/18 08:51 Imdur Extended Rel PO 01/07/19 08:59 30 mg QAM ROSALIA Administration Lisinopril 20 mg 12/08/18 09:00 12/08/18 08:54 Zestril PO 01/07/19 08:59 20 mg QAM ROSALIA Administration Metoprolol Succinate 25 mg 12/08/18 09:00 12/08/18 08:50 Toprol Xl PO 01/07/19 08:59 25 mg QAM ROSALIA Administration NPO Date Last Intake of Fluids: 12/09/18 Time Last Intake of Fluids: 06:00 Last Intake of Fluids Comment: pt finished bowel prep Date Last Intake of Solids: 12/06/18 Time Last Intake of Solids: 16:00 Past Medical History Medical History Coronary artery disease Peripheral arterial disease Past Family History Family History Father Stroke Other Diabetes Past Surgical History Surgical History S/P coronary angiogram S/P coronary artery stent placement S/P peripheral artery angioplasty with stent placement Social History Smoking Status: Never smoker Hx Alcohol Use: No Hx Substance Use: No Physical Exam Vital Signs Last Vital Signs Temp 36.8 C 12/09/18 07:00 Pulse 71 12/09/18 07:49 Resp 20 12/09/18 07:00 BP 173/74 H 12/09/18 07:00 Pulse Ox 100 12/09/18 07:00 Testing Laboratory Results 12/09/18 00:42 12/08/18 06:02 Hemoglobin A1c 6.7 % (4.5-5.6) H 12/08/18 06:02 Urine Color Yellow 12/07/18 09:27 Urine Appearance Clear (Clear) 12/07/18 09:27 Urine pH 5.0 (4.5-7.5) 12/07/18 09:27 Ur Specific [place] 1.031 (1.000-1.030) H 12/07/18 09:27 Urine Protein Negative (Negative) 12/07/18 09:27 Urine Glucose (UA) 3+ (Negative) H 12/07/18 09:27 Urine Ketones Trace (Negative) H 12/07/18 09:27 Urine Nitrite Negative (Negative) 12/07/18 09:27 Ur Leukocyte Esterase Negative (Negative) 12/07/18 09:27 Blood Type B Positive 09/24/19 11:56 Antibody Screen NEGATIVE 12/07/18 11:56 12/09/18 12/08/18 05:56 23:35 POC Glucose 91 118 H
[2018-12-09] MEDS ORDERED: PROPOFOL IV EMULSION 10 MG/ML 20 ML VIAL IV ONE (09:03)
[2018-12-09] MEDS ORDERED: LIDOCAINE HCL 2% 2 ML VIAL/AMP(20MG/ML) INFIL ONE (09:03)
--- NOTE | 2018-12-09 10:55 | Anesthesiology Progress Note ---
Date of Service December 09, 2018 Anesthesia Post Procedure Vital Signs Vital Signs: Temp Pulse Pulse Resp BP BP Pulse Ox 12/09/18 10:24 67 18 160/78 H 97 12/09/18 10:09 69 18 171/75 H 96 12/09/18 09:54 71 18 142/73 H 97 12/09/18 08:47 36.7 C 73 18 144/69 H 97 12/09/18 07:49 71 12/09/18 07:00 36.8 C 75 20 173/74 H 178/75 H 100 12/09/18 04:27 36.6 C 77 20 128/66 97 12/09/18 01:23 84 12/08/18 23:51 36.4 C L 70 20 150/60 H 100 12/08/18 19:14 36.6 C 69 18 161/78 H 100 12/08/18 17:09 83 12/08/18 16:06 78 20 164/69 H 100 12/08/18 12:27 36.6 C 89 20 127/68 99 Pain Intensity Head: Pain Intensity: 3 Transfer of Care Handoff Completed per policy Notes Mental Status: alert / awake / arousable and participated in evaluation Patient Amnestic to Procedure: Yes Nausea / Vomiting: adequately controlled Pain: adequately controlled Airway Patency, RR, SpO2: stable & adequate BP & HR: stable & adequate Hydration State: stable & adequate Anesthetic Complications: no major complications apparent and Pt Satisfied with anesthetic care
--- NOTE | 2018-12-09 12:46 | History & Physical Bridge Note ---
Date of Service December 09, 2018 History & Physical Bridge Note GI brief note post op: patient underwent EGD and colonoscopy which showed a 3 cm esophageal mass near the GE junction/cardia. multiple biopsies taken. see provation reports for full details. Plan: CT C/A/P to further evaluate disease extent Will need an EUS for tumor staging as well in the near future, likely after CT and path results are back diet as tolerated f/u path results
[2018-12-09] MEDS ORDERED: IOVERSOL 100ml IV PRN (12:49)
--- NOTE | 2018-12-09 13:13 | CT Scan Report ---
CT chest w con CLINICAL HISTORY: 63 years-old Male presenting with Esophageal mass; r/o mets. TECHNIQUE: Multidetector CT imaging of the chest was performed after the administration of intravenou s contrast. IV contrast: 94 mL of Optiray 320. One or more dose lowering techniques were used consist ent with the principles of ALARA (as low as reasonably achievable), including automatic exposure cont rol, mA or kV adjustment to individual patient size, and/or use of iterative reconstruction. COMPARISON: None. CT DOSE (mGy.cm): The estimated cumulative dose is 1698.33. 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 Soft tissues: 12 mm nodule in the right thyroid lobe. Enlarged mediastinal lymph nodes in the right p aratracheal, subcarinal, and prevascular regions. Many of these lymph nodes demonstrate internal calc ification. Small bilateral hilar lymph nodes with calcification also evident. Atherosclerosis of the aorta. Mild multichamber enlargement of the heart. Coronary artery calcification. No pericardial or p leural effusion. No focal esophageal wall thickening is identified. No infiltration of the paraesopha geal fat. Hepatic steatosis. Lungs and airways: No pneumothorax. Central airways patent. Pulmonary arteries are not significantly enlarged relative to adjacent bronchi. No interlobular septal thickening. Multiple calcified granulom arthur. Minimal dependent changes likely atelectasis. No other focal nodule or infiltrate. Musculoskeletal: No destructive osseous lesion. IMPRESSION: 1. No esophageal mass or wall thickening identified. 2. Mediastinal and bilateral hilar lymphadenopathy with significant calcification within the lymph n odes. This most likely relates to old granulomatous disease and is not specific for lymph node metast ases. PET/CT may help to identify pathologic FDG avidity amidst the diffusely enlarged mediastinal ly mph nodes. 3. No intrathoracic metastatic disease. 4. Mild cardiomegaly. 5. 12 mm nodule in the right lobe of the thyroid. This could be evaluated with ultrasound if there i s clinical concern. Electronically signed by: Mumtaz Rai M.D. 12/09/2018 1:11 PM
--- NOTE | 2018-12-09 13:23 | CT Scan Report ---
CT SCAN OF THE ABDOMEN AND PELVIS WITH IV CONTRAST CLINICAL HISTORY: Esophageal mass. Metastatic survey. COMPARISON STUDY: No priors. TECHNIQUE: Following the IV administration of 94 cc of Optiray 320, CT scan of the abdomen and pelvi s is performed from the lung bases to the proximal femora. Images are reviewed in the axial, sagittal , and coronal planes. IV contrast was administered without complication. Oral contrast was utilized. A dose lowering technique was utilized adhering to the principles of ALARA. CT DOSE: 1698.33 mGy.cm FINDINGS: Lung bases: The heart is top normal in size and without pericardial effusion. The coronary arteries a re densely calcified. There is a small hiatal hernia. There are scattered calcified granulomas. The l keenan bases are otherwise clear noting bibasilar scarring/atelectasis. Liver: The contrast-enhanced liver is enlarged, measuring 20 cm in length. The liver demonstrates dif fusely diminished attenuation consistent with hepatic steatosis. Fatty sparing is seen adjacent to ga llbladder fossa. There is no intrahepatic biliary ductal dilatation. The hepatic veins and portal vei ns are patent. There are scattered calcified granulomas. Gallbladder: Unremarkable. Spleen: The spleen is enlarged measuring 15.5 cm in length. There are numerous calcified splenic gran ulomas. Pancreas: Unremarkable. Adrenal glands: There is a 7 mm myelolipoma as well as mild nodularity of the left adrenal gland. The right adrenal gland is normal. Kidneys: The contrast enhanced kidneys are normal in size and without hydronephrosis. The kidneys enh ance symmetrically. Abdominal vasculature: The abdominal aorta is normal in course and caliber noting moderate atheroscle rotic calcification. Stomach and bowel: Asymmetric wall thickening is suggested in the anterior fundal region the stomach. The stomach is otherwise normal as imaged. The duodenum is normal in configuration. There is no leatha l obstruction. Enteric contrast reaches the right colon. The appendix is not identified. Peritoneum: There is no intraperitoneal free air or abdominal ascites. There is a small fat-containin g umbilical hernia. Lymphadenopathy: None. Pelvic viscera: There is a 3.7 x 2.6 cm enhancing lobular mass lesion involving the right posterior w all of the bladder. This is seen on image #[id number]. The prostate gland is mildly enlarged noting median l obe hypertrophy. The seminal vesicles are normal as imaged. Skeletal structures: There is mild lumbosacral spondylosis. Arthritic change is seen in the hips. No lytic or blastic lesions are seen. IMPRESSION: 1. There is a 3.7 cm lobulated enhancing mass lesion arising from the posterior right wall of the briana dder. This should be considered bladder cancer until proven otherwise. Follow-up with urology is jt mmended. 2. There is no evidence of metastatic disease in the abdomen or pelvis. 3. Question asymmetric wall thickening of the anterior gastric fundus. This is not well assessed by C T and correlation with endoscopy results will be required. 4. Hepatomegaly and hepatic steatosis. 5. Splenomegaly. 6. Additional findings as above. Electronically signed by: Ángel Lynn M.D. 12/09/2018 1:22 PM
[2018-12-09] MEDS: SODIUM CHLORIDE 0.45 % 1,000 ML IV SCH ×2 (14:30→16:27)
[2018-12-09] MEDS: ISOSORBIDE MONO EXTENDED REL 30 MG TABCR PO SCH (14:51)
[2018-12-09] MEDS: hydroCHLOROthiazide 25 MG TAB PO SCH (14:52)
[2018-12-09] MEDS: METOPROLOL SUCC 25MG EXT REL TAB PO SCH (14:52)
[2018-12-09] MEDS: lisinopriL 20 MG TAB PO SCH (14:52)
[2018-12-09] MEDS: CLOPIDOGREL BISULFATE 75 MG TAB PO SCH (14:58)
[2018-12-09] MEDS ORDERED: Nursing to Pharmacy Communication ONE (16:14)
--- NOTE | 2018-12-09 16:33 | Consultation Report ---
DATE OF CONSULTATION: 12/09/2018 REASON FOR CONSULTATION: Esophageal mass. HISTORY OF PRESENT ILLNESS: This is a 63-year-old male who I saw in room 288 today. We are asked to see for esophageal mass. The patient was admitted to the hospital on 12/07/2018 secondary to hyperglycemia. The patient presented to the Emergency Department because he was having difficulty controlling his blood glucose levels. While he was in the Emergency Department, he was noted to be anemic and his stool was heme tested and noted to be heme positive. The patient was questioned on further symptoms and he reported a recent inability to walk as his legs would get tired. Because of his anemia, heme-positive stool and hyperglycemia, he was admitted to the hospital. He was noted to have acute kidney injury with a creatinine of 1.4. It was elected to give the patient 2 units packed red blood cells and a gastroenterology consultation was obtained. The patient had a colonoscopy earlier today, which reportedly did not reveal any source of GI bleeding. He did undergo an EGD today where the patient was noted to have 3 cm esophageal mass near the GE junction. Biopsies were taken; however, are pending at this time. I did discuss with the primary service and the preliminary report is concerning that this may be a cancerous lesion; therefore, they requested us to see the patient. The patient did have staging CAT scans of the chest, abdomen and pelvis. The patient was not noted to have any esophageal mass or thickening visible on CT scan; however, nonspecific mediastinal hilar adenopathy was noted. There is no other evidence of intrathoracic metastasis and a 12 mm thyroid nodule was noted. The patient had a CT scan of his abdomen where there is no evidence of abdominal metastasis. There was some nonspecific thickening of the gastric fundus noted and a 3.7 cm bladder mass was noted. The patient's labs were reviewed, and today, his CBC revealed his platelet count and white blood cell count are normal. He did have a hemoglobin of 9.0 and this has improved from 7.9 after he received 2 units of blood. This admission, he did have an INR that was noted to be normal and he did have a chemistry profile today where his sodium, potassium and creatinine are normal. It is noteworthy to mention his creatinine was up to 1.4; however, this improved with packed red blood cells as noted above. I did question the patient on numerous symptoms. He denies any falls, head injuries or new visual changes. He denies tinnitus, vertigo, sore throat, or neck pain. He does not report any chest pain; however, he does report having a cardiac catheterization approximately 2 months ago at [facility]. He is unsure if he had drug-eluting stents placed. He denies any shortness of breath at rest. He denies fever, shakes, chills, or abdominal pain. He does report melenic stools that have been going on for approximately 2 weeks. He denies any bright red blood per rectum. He denies nausea, vomiting. He does report approximately a 10-pound weight loss over the past 2 weeks. This weight loss is unintentional. He does note some weakness of his legs with prolonged walking that improves with rest. He denies any depression or anxiety. He has no history of DVT or PE. At the time of my exam, he is resting comfortably in bed. PAST MEDICAL HISTORY: Includes: 1. Coronary artery disease. 2. Peripheral vascular disease. 3. Diabetes. 4. Hypertension. 5. Hyperlipidemia. PAST SURGICAL HISTORY: Includes: 1. Cardiac catheterization with stent placement approximately 2 months ago at [facility]. 2. Peripheral artery angioplasty with stent placement in his bilateral lower extremities. 3. EGD as noted above. 4. Colonoscopy as noted above. FAMILY HISTORY: Positive for diabetes. 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 He is a lifetime nonsmoker. He did drink alcohol socially years ago but does not have any history of heavy alcohol abuse. He denies any exposures to chemicals or pesticides. ALLERGIES: None. CURRENT MEDICATIONS: Include: 1. Plavix 75 mg daily. 2. Protonix drip. 3. Lisinopril 20 mg daily. 4. Toprol 25 mg daily. 5. Isosorbide 30 mg daily. 6. Sliding scale insulin. 7. Normal saline solution. 8. Hydrochlorothiazide 12.5 mg daily. REVIEW OF SYSTEMS: As noted above. PHYSICAL EXAMINATION: VITAL SIGNS: Blood pressure is 163/74, pulse 74 and regular, respirations are 18 and unlabored, his temperature is 36.5, which is afebrile, pulse ox 95% on room air. GENERAL: He is alert, he is oriented x3, in no distress. HEENT: Head is atraumatic, normocephalic. Eyes: Pupils equal, round and react to light and accommodation. Extraocular motions are intact. Ears: Auditory acuity is grossly intact. Nose: Nasal patency is intact. Sinuses are nontender. Mouth is moist without exudates. NECK: Supple, trachea is midline. I was not able to palpate any cervical adenopathy. CARDIOVASCULAR: Regular rate and rhythm. LUNGS: Clear to auscultation. ABDOMEN: Soft, nondistended and nontender. EXTREMITIES: Revealed no cyanosis, clubbing, or edema. I was unable to palpate pedal pulses. NEUROLOGIC: Revealed cranial nerves II-XII are grossly intact. No focal deficits are noted. DIAGNOSTIC DATA: As noted above. IMPRESSION: A 63-year-old male with esophageal mass. PLAN: We will await the final pathology. The gastroenterology team thus far feels the patient may require an EUS for further staging along with a PET scan. I explained to the patient that a PET scan will likely be performed as an outpatient basis. This admission, Dr. Guzmán will review the patient's CAT scan to see if any intervention needs to be undertaken due to his nonspecific mediastinal adenopathy or if we will await a PET scan first. We will continue to follow along while the patient is in the hospital.
--- NOTE | 2018-12-09 18:25 | Hospitalist Progress Note ---
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 (2) ARF (acute renal failure): KAYDEN related to anemiaimproved. Ongoing vigilance (3) CAD (coronary artery disease): Recent stenting last month x2 in [place] Discussed with patient's primary driver, Dr. Cho ([phone]), who noted that right now after the stenting done a month ago, he would presume approximately a 3% chance of in-stent thrombosis off of both antiplatelets. Of course, would prefer dual antiplatelets for at least another few months, but given the circumstances, notes that risk/benefit favors doing what is right for the patient and monitoring closely in regards to the stents. If only one antiplatelet is able to be used he would prefer Plavix over aspirin. Recommended getting local cardiology involved, so that if there was in-stent t hrombosis we would have the ability to intervene ASAPwe will consult cardiology and ask for the cath report for their reference. In the meantime resume Plavix (unless thoracic surgery feels they will be able to intervene sooner rather than later) today and follow closely. (4) Diabetes mellitus type 2, uncontrolled: A1c right now drastically different than the entirety of A1c is available for review, suspect falsely low and question whether this relates to his acute blood loss anemia. This especially so given that his A1c was dramatically higher only only a few weeks ago. Extensive discussion on lifestyle management, focusing on simple carbohydrates was done on 12/08 (5) Hypertension: Blood pressure is reasonable, continue current medicines, low threshold to hold in light of his GI bleeding, but right now stable. (6) SOB (shortness of breath): Recently started an inhaler with PCP No formal PFTs or hx of pulm issues No shortness of breath (7) Hypokalemia: Continue to follow (8) Dyslipidemia: Holding statin (9) DVT prophylaxis: SCDspharmacologic contraindicated given GI bleeding (10) Esophageal mass: Unfortunately this appears to be the cause of his upper GI bleeding, unmasked by the dual antiplatelets. Staging CT with nonspecific thoracic adenopathy, I suspect a PET CT will be needed to sort this out, but given the overall complexity of the situation, I will ask thoracic surgery to see while he is here so that we can start to plan balancing his many comorbidities, and int ervene sooner rather than later if possible. I have also asked the nurse navigator to presumptively schedule a PET/CT as an outpatient for next week so we can keep the patient situation moving forward if this is needed. (11) Bladder mass: Incidental finding, unrelated to the esophageal mass, but needs to be dealt with as well. Somewhat surprising that he did not also have hematuria, obviously as as above with GI bleeding, will need to follow urinary bleeding closely with the antiplatelets. Discussed with urology, next step will be cystoscopy in the office, and between urology and nurse navigator, this is being set up. Subjective No new complaints. No chest pain or shortness of breath noted, no further bleeding noted. Extensive discussions on endoscopic and CT findings, as well as next steps. Case discussed with multiple specialties throughout the day as well as nurse navigator to start to coordinate outpatient needs. Review of Systems Review of Systems: All systems reviewed & are unremarkable except as noted in HPI & below Physical Exam Physical Exam: General he is awake and alert pleasant no distress. HEENT normocephalic atraumatic mucous membranes moist. Breathing unlabored no accessory muscle use good effort. Skin shows no rashes no pallor or icterus. Neuro shows no focal deficits. Results & Data Vital Signs (Past 12 Hours) Vital Signs Temp Pulse Pulse Resp BP BP Pulse Ox 12/09/18 16:48 75 12/09/18 15:25 97.7 F 74 18 163/74 H 95 12/09/18 11:00 97.5 F L 67 18 180/81 H 96 12/09/18 10:24 67 18 160/78 H 97 12/09/18 10:09 69 18 171/75 H 96 12/09/18 09:54 71 18 142/73 H 97 12/09/18 08:47 98.1 F 73 18 144/69 H 97 12/09/18 07:49 71 12/09/18 07:00 98.2 F 75 20 173/74 H 178/75 H 100 PG Care Time/CCT Total # of Minutes Spent Total Time Spent with Patient: Total time spent is greater than 50% in coordination of care (as documented) at patient's floor/unit and/or counseling patient: (1) GIB (gastrointestinal bleeding) GI bleed type/associated pathology: unspecified gastrointestinal hemorrhage type Qualified Code(s): K92.2 - Gastrointestinal hemorrhage, unspecified
--- NOTE | 2018-12-10 00:02 | GI REPORT ---
Patient Name: Josafat Foster Procedure Date: 12/09/2018 9:09 AM Date of : 1955 Admit Type: Inpatient Age: 63 Gender: Male Attending MD: Lorenzo Castaneda MD Procedure: Upper GI endoscopy Providers: Lorenzo Castaneda MD Referring MD: Referred Self Indications: Iron deficiency anemia secondary to chronic blood loss Medicines: Monitored Anesthesia Care Complications: No immediate complications. Estimated blood loss: None. Estimated Blood Loss: Estimated blood loss: none. Procedure: Pre-Anesthesia Assessment: - Prior Anticoagulants: The patient has taken Plavix (clopidogrel), last dose was day of procedure. - ASA Grade Assessment: IV - A patient with severe systemic disease that is a constant threat to life. After obtaining informed consent, the endoscope was passed under direct vision. Throughout the procedure, the patient's blood pressure, pulse, and oxygen saturations were monitored continuously. The Endoscope was introduced through the mouth, and advanced to the second part of duodenum. The upper GI endoscopy was accomplished without difficulty. The patient tolerated the procedure well. Findings: A medium-sized, ulcerating mass with no bleeding was found at the gastroesophageal junction, 40 to 43 cm from the incisors. The mass was non-obstructing. Biopsies were taken with a cold forceps for histology. Estimated blood loss: none. Estimated blood loss: none. Mild inflammation was found in the gastric antrum. brunners gland hyperplasia was noted in the duodenal bulb. Estimated blood loss: none. The second portion of the duodenum was normal. 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 Biopsied. - Acute gastritis. - Normal second portion of the duodenum. Recommendation: - Await pathology results. - Resume previous diet today. - Return patient to [facility] for ongoing care. Lorenzo Castaneda MD 12/09/2018 9:56:06 AM This report has been signed electronically. Note Initiated On: 12/09/2018 9:09 AM Number of Addenda: 0 I attest to the content of the Intraoperative Record and orders documented therein, exceptions below {[id number]}
--- NOTE | 2018-12-10 00:03 | GI REPORT ---
Patient Name: Josafat Foster Procedure Date: 12/09/2018 9:08 AM Date of : 1955 Admit Type: Inpatient Age: 63 Gender: Male Attending MD: Lorenzo Castaneda MD Procedure: Colonoscopy Providers: Lorenzo Castaneda MD Referring MD: Referred Self Indications: Iron deficiency anemia Medicines: Monitored Anesthesia Care Complications: No immediate complications. Estimated blood loss: None. Estimated Blood Loss: Estimated blood loss: none. Procedure: Pre-Anesthesia Assessment: - Prior Anticoagulants: The patient has taken Plavix (clopidogrel), last dose was day of procedure. - ASA Grade Assessment: IV - A patient with severe systemic disease that is a constant threat to life. After I obtained informed consent, the scope was passed under direct vision. Throughout the procedure, the patient's blood pressure, pulse, and oxygen saturations were monitored continuously. The scope was introduced through the anus and advanced to the cecum, identified by appendiceal orifice and ileocecal valve. The colonoscopy was performed with ease. The patient tolerated the procedure well. The bowel preparation used was GoLYTELY. The quality of the bowel preparation was fair. Findings: Non-bleeding internal hemorrhoids were found during retroflexion. The hemorrhoids were mild. A 7 mm, non-bleeding polyp was found in the distal sigmoid colon. The polyp was sessile. It was not removed due to the patient being on plavix currently. The exam was otherwise without abnormality. Impression: - Preparation of the colon was fair. - Non-bleeding internal hemorrhoids. - One 7 mm, non-bleeding polyp in the distal sigmoid colon. - The examination was otherwise normal. - No specimens collected. Recommendation: - Return patient to hospital [facility] for ongoing care. - Resume previous diet today. Lorenzo Castaneda MD 12/09/2018 10:00:48 AM This report has been signed electronically. Note Initiated On: 12/09/2018 9:08 AM Number of Addenda: 0 I attest to the content of the Intraoperative Record and orders documented therein, exceptions below {[id number]}
[2018-12-10] MEDS: SODIUM CHLORIDE 0.45 % 1,000 ML IV SCH ×2 (00:36→10:18)
[2018-12-10 09:04] LABS: Hematocrit (blood only) 27.2 % (42-52); Hemoglobin 8.8 g/dL (14.0-18.0)
[2018-12-10] MEDS: INSULIN ASPART 100 UNITS/ML 3 ML PEN SC SCH ×2 (09:20→12:29)
[2018-12-10] MEDS: hydroCHLOROthiazide 25 MG TAB PO SCH (09:21)
[2018-12-10] MEDS: METOPROLOL SUCC 25MG EXT REL TAB PO SCH (09:22)
[2018-12-10] MEDS: CLOPIDOGREL BISULFATE 75 MG TAB PO SCH (09:23)
[2018-12-10] MEDS: lisinopriL 20 MG TAB PO SCH (09:23)
[2018-12-10] MEDS: ISOSORBIDE MONO EXTENDED REL 30 MG TABCR PO SCH (09:23)
[2018-12-10] MEDS: PANTOprazole 40 MG in SYRINGE 0 ML IV SCH (09:24)
--- NOTE | 2018-12-10 09:58 | Cardiology Consultation ---
Date of Consultation December 10, 2018 Assessment & Plan (1) PAD (peripheral artery disease): He has well-known peripheral arterial disease, he has had stent placement in the past. Although I do not have details of those procedures he describes a nonhealing ulcer which healed once he had revascularization by angioplasty. He currently does not have leg pain, he gets tired if he walks which is consistent with claudication however he does not have rest symptoms and does not have rest limb ischemia. Given the lack of rest symptoms, stable exertional symptoms, uncertainty as to whether we can continue aspirin and Plavix I do not feel that further evaluation or intervention is indicated. (2) CAD (coronary artery disease): He has known coronary disease and had a stent placement several months ago by his history. I have not seen those records I do not know whether this was drug-eluting stent or not, he did have a drug-eluting stent placed in 2018 and I suspect the more recent one was as well. As such she should be on aspirin and Plavix, but obviously with his gastrointestinal bleed which required transfusions this is problematic. At the moment he is not actively bleeding, from the cardiac standpoint it would be ideal to place him back on these agents, or at least the Plavix, although since there were not gastric erosions I am not sure the aspirin is contraindicated. If it is felt that he cannot use aspirin or Plavix, at least in interim, he will increase his risk of acute thrombosis but that may be a chance we have to take. I would leave that decision up to the primary service and perhaps the surgical service. History of Present Illness Attending Physician: Yahir Stevenson, History of Present Illness This is a 63-year-old male who has a history of PAD with stent placement, diabetes mellitus, hypertension and hyperlipidemia and also has identified coronary artery disease. He had a stent placed in [place], he does not have an identification card with him for this most recent stent several months ago but he has one from 2018 which is a drug-eluting stent. He now presents December 07, 2018 with an elevated blood sugar but was observed to have a significant anemia, heme positive stools and received several units of blood and is also been evaluated by colonoscopy which I believe was negative for source of bleeding as well as esophagogastroduodenoscopy which showed a ulcerating mass at the gastroesophageal junction with no obvious bleeding. He had been on 81 mg daily of aspirin as well as clopidogrel 75 mg daily, these were held on admission. At the time of my evaluation he was feeling well. He does not describe rest leg pain, he is not having anginal symptoms. He reports that he can walk for perhaps a block before he has to stop and rest due to leg tiredness. Allergies Allergy/AdvReac Type Severity Reaction Status Date / Time No Known Allergies Allergy Unknown Verified 12/07/18 10:04 Home Medications Home Medications Medication Instructions Recorded Confirmed Type ascorbic acid (vitamin C) 500 mg 500 mg PO BID tab 10/28/18 12/07/18 History tablet clopidogrel 75 mg tablet 75 mg PO QAM tab 10/28/18 12/07/18 History ergocalciferol (vitamin D2) 50,000 50,000 units PO WK cap 10/28/18 12/07/18 History unit capsule fluticasone 500 mcg-salmeterol 50 1 puffs INHALATION BID PRN ea 10/28/18 12/07/18 History mcg/dose blistr powdr for inhalation hydrochlorothiazide 12.5 mg tablet 12.5 mg PO QAM #90 tab 10/28/18 12/07/18 History isosorbide mononitrate ER 30 mg 30 mg PO QAM tab 10/28/18 12/07/18 History tablet,extended release 24 hr levomefolate Ca 3 mg-B6 35 1 cap PO BID 10/28/18 12/07/18 History mg-meB12 2 mg-algal oil 90.314 mg capsule lisinopril 20 mg tablet 20 mg PO QAM #90 tab 10/28/18 12/07/18 History metoprolol succinate ER 25 mg 25 mg PO QAM tab 10/28/18 12/07/18 History tablet,extended release 24 hr rosuvastatin 20 mg tablet 20 mg PO QPM 11/10/18 12/07/18 History vitamin E (dl, acetate) 400 unit 400 units PO QAM 11/10/18 12/07/18 History capsule insulin degludec (U-100) 100 94 units SQ HS ml 11/18/18 12/10/18 History unit/mL (3 mL) subcutaneous pen aspirin [Aspir-81] 81 mg PO QAM 11/20/18 12/07/18 History pantoprazole 40 mg PO BID #60 tab 11/21/18 12/07/18 Rx famotidine 20 mg PO BID #20 tab 11/22/18 12/07/18 Rx ondansetron 4 mg PO Q6H PRN #14 tab 11/22/18 12/07/18 Rx sucralfate [Carafate] 10 ml PO QID #420 ml 11/22/18 12/07/18 Rx fluvastatin 40 mg PO HS 12/07/18 12/07/18 History insulin lispro 1 sliding scale dose SUBCUT TID 12/07/18 12/07/18 History multivitamin 1 tab PO DAILY 12/07/18 12/07/18 History potassium 99 mg PO DAILY 12/07/18 12/07/18 History insulin aspart U-100 [Novolog 25 unit SUBCUT AC 12/10/18 12/10/18 History Flexpen U-100 Insulin] Patient History Medical History Coronary artery disease Peripheral arterial disease Surgical History S/P coronary angiogram S/P coronary artery stent placement S/P peripheral artery angioplasty with stent placement Family History Father Stroke Other Diabetes Social History Preferred Language: Wolof Communication Ability: Effective Domestic Cleaner Required: No Beliefs That Will Affect Care: None Current Living Situation: Spouse Feels Safe at Home: Yes Smoking Status: Never smoker Second Hand Exposure: No ; Hx Alcohol Use: No Hx Substance Use: No Physical Exam Physical Exam: Constitutional: Alert, cooperative and in no distress. HEENT: Unremarkable Neck: No jugular venous distention, carotid pulses are normal and equal bilaterally without bruits. Pulmonary: Clear to auscultation bilaterally. Cardiac: Regular rhythm with no murmur, gallop or rub. Abdomen: Soft, nontender with normal bowel sounds. Extremities: No edema. Neurologic: No focal findings. Gait is steady. Skin: No rash, ecchymoses or petechiae. Results & Data Vital Signs (Past 12 Hours) Vital Signs Temp Pulse Pulse Resp BP BP Pulse Ox 12/10/18 07:00 36.5 C 69 20 159/64 H 100 12/10/18 04:00 36.4 C L 77 18 129/66 99 12/10/18 02:07 75 12/09/18 23:24 36.9 C 88 20 175/62 H 96 Diagnostic Findings Electrocardiogram: Sinus rhythm with premature atrial beats, no significant abnormality Telemetry: Sinus rhythm, no significant arrhythmia PG Care Time/CCT Total # of Minutes Spent Total Time Spent with Patient: Total time spent is greater than 50% in coordination of care (as documented) at patient's floor/unit and/or counseling patient:
--- NOTE | 2018-12-10 10:06 | Gastroenterology Progress Note ---
Date of Service December 10, 2018 Assessment & Plan (1) Esophageal mass: Patient is a 63 yo male with anemia & melena who underwent an EGD & colonoscopy on 12/09 and was found to have an esophageal mass. -Await pathology results. Pending results will likely need oncology involvement. -EUS with Dr. Prasad likely next week. -Outpatient PET to be arranged. -Outpatient urology follow-up for abnormal CT bladder. -Thoracic surgery following. -Continue Protonix 40 mg po BID as this is improving his reflux. Thank you for allowing us to participate in the care of this patient. If you should have any further questions or concerns, do not hesitate to contact us at extension [phone] or [phone]. Present on Admission?: Yes Supervising Physician Co-Signing Physician Notes I personally evaluated the patient and agree with the findings and plan as documented by Adali Galvin, PAC Exam: abd: soft, nt, nd, no hsm Currently awaiting pathology for his esophageal mass, he will need further workup in the form of EUS and pet CT as described. Subjective Patient is a 63 yo male with anemia who underwent a colonoscopy & EGD on 12/09/2018. His EGD indicated an esophageal mass concerning for malignancy. Pathology is pending. CT follow-up of chest, abdomen, & pelvis did not indicate clear metastatic disease, but did incidentally noted mediastinal & bilateral hilar lymphadenopathy possibly representing old granulomatous disease, a thyroid nodule, and a 3.7 cm mass in the bladder suspicious for malignancy. The patient reports he is feeling ok. Currently H/H is 8.8/27.2. He denies dysphagia, melena, abdominal pain, heartburn, reflux, dysuria or hematuria. Hospitalists have consulted thoracic surgery for this patient. Cardiology has also been involved due to his recent history of stenting 2 months ago. Review of Systems Respiratory: no cough and no dyspnea Cardiovascular: no chest pain Gastrointestinal: no abdominal pain Physical Exam Constitutional: WD/WN, vitals as above Respiratory: normal respiratory effort, lungs clear to auscultation Cardiovascular: RRR, no murmur, no edema Gastrointestinal (Abdomen): normal bowel sounds, soft, nontender, no hepatosplenomegaly Results & Data Vital Signs (Past 12 Hours) Vital Signs Temp Pulse Pulse Resp BP BP Pulse Ox 12/10/18 07:00 36.5 C 69 20 159/64 H 100 12/10/18 04:00 36.4 C L 77 18 129/66 99 12/10/18 02:07 75 12/09/18 23:24 36.9 C 88 20 175/62 H 96 PG Care Time/CCT Total # of Minutes Spent Total Time Spent with Patient: Total time spent is greater than 50% in coordination of care (as documented) at patient's floor/unit and/or counseling patient:
[2018-12-10 11:09] VITALS: PULSE 67; TEMP 97.9; O2SAT 98
--- NOTE | 2018-12-10 12:17 | Consultation Report ---
DATE OF CONSULTATION: 12/10/2018 HISTORY OF PRESENT ILLNESS: Mr. Foster is a 63-year-old who has had diabetes mellitus for about 20 years and had suffered some of the sequela including peripheral vascular disease and coronary artery disease. He is a lifetime nonsmoker. The patient is having difficulty controlling his blood sugars and he was noted to be anemic and had a heme positive stools. He underwent a workup which culminated in a colonoscopy and an upper endoscopy. This showed a GE junction tumor. He underwent a biopsy yesterday for this. I reviewed this with the pathologist today and this is a moderately differentiated adenocarcinoma (preliminary diagnosis). I reviewed his CT scan quite closely and I see no evidence of significant mediastinal hilar adenopathy or even periaortic although some more bit enlarged. He also has a bladder tumor which is pedunculated. I had a long talk with the patient and his . I also discussed this case with Dr. Mumtaz Buckley from radiology and Dr. Aurora Gorman from pathology. This patient is going to require an endoscopic ultrasound and Dr. Manny Prasad to set up to do that as an outpatient. He is also set up to undergo a PET scan. When we get these back, I will see him in the office. We will make a determination about whether we proceed with neoadjuvant chemotherapy and radiation, neoadjuvant chemotherapy, or straight to as a robotic esophagogastrectomy with probable adjuvant therapy afterwards. The patient has issues with coronary artery disease and underwent stenting. He has steroid eluding stents. He has no cardiac symptoms now. He is on Plavix and aspirin. Dr. Garcia who is a rn cardiac in [place], is his rn cardiac and performed the interventions in his lower extremities years ago. The patient has fairly significant claudication at about a block and he must rest but can continue walking. He does not have shortness of breath or palpitations. We are going to have him evaluated by cardiology and I will see him back after all these evaluations performed and determine how we are going to proceed. I will present him at our weekly cancer conference. LINDA
--- NOTE | 2018-12-10 14:45 | Cardiology Progress Note ---
Date of Service December 10, 2018 Assessment & Plan (1) PAD (peripheral artery disease): --status post bilateral LE intervention (complete details unknown) 2. CAD-- status post multiple PCI 3. Anemia 4. Esophageal mass Patient admitted with anemia and discovered to have an esophageal mass concerning for malignancy. May eventually undergo surgery with Dr. Guzmán after further evaluation is completed. He has a known history of peripheral arterial disease with reported prior intervention to bilateral lower extremities. He has chronic claudication symptoms which have progressed to some degree over the past several months but no evidence of critical limb ischemia. Currently no indication for urgent lower extremity angiogram. Will obtain bilateral lower extremity arterial duplex for further evaluation of vascular disease. This can be performed during his current hospitalization or as an outpatient if needed. From a vascular standpoint he is OK to discharge. Patient was discussed with Dr. Moreno. Supervising Physician Co-Signing Physician Notes Reviewed arterial duplex obtained in hospital. There a short popliteal occlusion on the left. He has bilateral tibial vessel disease but PT/AMY patent at the level of the foot and ABIs consistent with mild to moderate arterial insufficiency. In the setting of moderate bilateral claudication endovascular intervention to left popliteal could be considered although suspect symptoms likely to improve as anemia a resolves. Prior vascular work done with Dr. Cho in [place] and patient wishes to continue to follow-up with him for his vascular care as needed. Please contact if can help in some way in the future. Subjective Mr. Foster is a 63 year old male with a medical history significant for CAD status post PCI, PAD status post bilateral LE endovascular intervention, type 2 diabetes, hypertension, and dyslipidemia. Dr. Moreno and I were asked to evaluate the patient's peripheral arterial disease. Please see Dr. De's consultation regarding cardiac history. He was admitted to [facility] with hyperglycemia and abdominal discomfort. He was noted to be anemic with a hemoglobin of 8.7 in the ED and also had heme positive stools. He underwent EGD which shows an ulcerating mass concerning for possible malignancy. He required transfusion and antiplatelets were held. Also noted to have mediastinal adenopathy and a bladder mass on CT scans. He reports a history of peripheral arterial disease and follows with Dr. Cho in [place]. He reports stenting of both lower extremities in the past. I only have records of his right lower extremity intervention which was performed to the tibioperoneal trunk. He states this was done for a non healing foot ulceration. He has chronic claudication and notes some progression in his symptoms over the past 3-4 months. He can walk about one block before experiencing limiting bilateral calf tiredness/aching. Symptoms resolve quickly with rest and he can then continue activity. Day before admission while walking at the [facility] his legs felt tired more quickly than normal but as above he was then found to be significantly anemic. No pain at rest. No lower extremity ulcerations. Patient is currently feeling well and is anxious to go home. 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 No tobacco, alcohol or drug use. Review of Systems Review of Systems: All systems reviewed & are unremarkable except as noted in HPI & below Physical Exam Physical Exam: General: No acute distress, comfortable. HEENT: Head is normal. PERRLA. EOMI. Sclerae anicteric. Ears, nose and throat unremarkable. Mucous membranes moist. Neck: Normal carotid upstrokes, no bruits. No appreciable JVD. Lungs: Clear to auscultation bilaterally without rales, rhonchi or wheezes. Cardiac: Regular rate and rhythm. S1-S2 normal. No appreciable murmur, gallop or rub. Abdomen: Soft and nontender. Bowel sounds normal. No mass or organomegaly. No abdominal bruit. Extremities/vascular: --Well perfused. No peripheral edema. --Radial pulse 1+ on right and 2+ on left --Femoral pulses 2+ bilaterally --Popliteal, DP and PT pulses diminished bilaterally --Capillary refill intact --No lower extremity ulcerations Results & Data Vital Signs (Past 12 Hours) Vital Signs Temp Pulse Resp BP BP Pulse Ox 12/10/18 11:08 36.6 C 67 18 160/61 H 98 12/10/18 07:00 36.5 C 69 20 159/64 H 100 12/10/18 04:00 36.4 C L 77 18 129/66 99 Laboratory Results Laboratory Results - last 24 hr 12/09/18 12/09/18 12/09/18 08:56 16:48 16:49 Hgb Hct POC Glucose 96 305 H* 304 H* 12/09/18 12/10/18 12/10/18 20:09 07:47 07:49 Hgb Hct POC Glucose 272 H 59 L* 63 L* 12/10/18 12/10/18 12/10/18 08:27 08:55 11:38 Hgb 8.8 L Hct 27.2 L POC Glucose 109 H 244 H PG Care Time/CCT Total # of Minutes Spent Total Time Spent with Patient: Total time spent is greater than 50% in coordination of care (as documented) at patient's floor/unit and/or counseling patient:
--- NOTE | 2018-12-10 16:32 | Discharge Summary ---
Date of Service December 10, 2018 Admission HPI Per Admitting Provider 63 y/o M c/o hyperglycemia. Pt [place] ate a large amount of ice cream and other foods that he would not usually eat. He came home and noted his BS was in the upper 200s, so he took 30 units SSI. He also took his usual 95 unit HS long acting insulin. He checked his BS later and it was still elevated, so he took another 30 units SSI. He rechecked around 1130p and his BS was 175. He went to bed. This AM he felt like his BS was low. He was sweating and hot feeling. He drank orange juice and checked his BS shortly after. It was over 600, so he came to the ED. Pt notes that he took tylenol x3 last night. He has used tylenol since d/c but states no additional aspirin Pt also notes that he was having issues with endurance while walking at the fair last night. He would walk for a bit but then feel as if his LE could not continue. He would rest and this would improve, but returned quickly. This is not a usual issues for him. He was also SOB ambulating to the bathroom in the ED today. While in the ED, he was noted to have a Hb of 8.7. He was noted to be heme + on rectal exam. Pt states he had black stool today. He is not certain if he had black stool prior to this. Pt has recently been having issues with abd pain. He was hospitalized 11/20-11/22 for LUQ. Hb was 13.3 on 11/22 and no bleeding. He had been on plavix and aspirin 81mg, but he had noted that he frequently took an extra 1-2 81mg aspirin if they fell out of the bottle that way lately "because if 1 is good, than 2-3 is better". He was dx with gastritis related to NSAID use and put on protonix BID and sulcrafate QID. He states that he has had bloating, but no further abd pain since his d/c. Pt has hx of c-scope, last was about 4-5 yrs ago. He is scheduled in the next month or so for routine c-scope. Pt had 2 stents placed in October in [place]. Pt denies fever, chest pain, n/v/c/d, LE pain or swelling. Principal Diagnosis Esophageal mass, adenocarcinoma Discharge Exam Constitutional WD/WN, vitals as above Eyes PERRL, conjunctivae normal, anicteric sclerae ENMT external ear and nose normal, oropharynx normal Neck trachea midline, no thyromegaly Respiratory normal respiratory effort, lungs clear to auscultation Cardiovascular RRR, no murmur, no edema Gastrointestinal (Abdomen) normal bowel sounds, soft, nontender, no hepatosplenomegaly Musculoskeletal no cyanosis or clubbing, extremities motor strength 5/5 Skin no rashes, warm and dry Neurologic patellar DTR's 2+ bilat, sensation intact and PERRL, EOMI, accommodation nl, no face palsy, no dysarthria Psychiatric A+Ox3, euthymic affect Lymphatic no cervical or axillary lymphadenopathy Discharge Data Allergies Allergy/AdvReac Type Severity Reaction Status Date / Time No Known Allergies Allergy Unknown Verified 12/07/18 10:04 Consultations 12/07/18 12:15 ED Decision to Admit Stat 12/07/18 15:00 Consult Gastroenterology Routine 12/09/18 14:09 Consult Thoracic Surgery Routine 12/09/18 17:30 Consult Cardiology Routine Consult Health Information Management Routine 12/10/18 09:30 Consult Cardiology Routine Procedures Performed Operation Date: 12/09/18 08:30 Actual Procedures p EGD Biopsy Cytology - Lorenzo Castaneda MD s Colonoscopy - Lorenzo Castaneda MD Ordered Studies 12/07/18 10:01 CT head/brain wo con Stat 12/09/18 10:16 CT abd pelvis oral and IV con Routine CT chest w con Routine 12/10/18 11:16 US arterial duplex LE BI Urgent Hospital Course (1) Esophageal mass: Unfortunately this appears to be the cause of his upper GI bleeding, unmasked by the dual antiplatelets. Staging CT with nonspecific thoracic adenopathy pathology shows adenocarcinoma Plan: outpatient PET/CT next week outpatient endoscopic US with Dr. Prasad for localized staging of the tumor follow up with Dr. Guzmán in the office after these tests to determine course of treatment, neoadjuvent chemo/radiation or robotic esophagectomy patient will continue on Plavix but stop aspirin he knows to stop the Plavix if melena returns and to call his PCP or Dr. Guzmán (2) GIB (gastrointestinal bleeding): With acute blood loss anemia now status post 2 units transfusion Related to esophageal malignancy, bleeding unmasked by dual antiplatelets. Hb stable at 8.8 today, was 9.0 24 hours prior BP stable no melena for days, ever since DAPT stopped (3) ARF (acute renal failure): [place] related to anemia resolved with transfusions (4) CAD (coronary artery disease): Recent stenting last month x2 in [place] Discussed with patient's primary implementation services analyst, Dr. Cho (cell [phone]), who noted that right now after the stenting done a month ago, he would presume approximately a 3% chance of in-stent thrombosis off of both antiplatelets. Of course, would prefer dual antiplatelets for at least another few months, but given the circumstances, notes that risk/benefit favors doing what is right for the patient and monitoring closely in regards to the stents. If only one antiplatelet is able to be used he would prefer Plavix over aspirin. Dr. Moreno evaluated patient today, he can follow locally if needed will continue on Plavix, educated on possibility of instent thrombosis, knows to report to ED if he has crushing chest pain (5) Diabetes mellitus type 2, uncontrolled: A1c right now drastically different than the entirety of A1c is available for review, suspect falsely low and question whether this relates to his acute blood loss anemia. This especially so given that his A1c was dramatically higher only only a few weeks ago. Extensive discussion on lifestyle management, focusing on simple carbohydrates was done on 12/08 (6) Hypertension: Blood pressure is reasonable, continue current medicines, low threshold to hold in light of his GI bleeding, but right now stable. (7) SOB (shortness of breath): Recently started an inhaler with PCP No formal PFTs or hx of pulm issues No shortness of breath (8) Hypokalemia: Continue to follow (9) Dyslipidemia: Holding statin (10) DVT prophylaxis: SCDspharmacologic contraindicated given GI bleeding (11) Bladder mass: Incidental finding, unrelated to the esophageal mass, but needs to be dealt with as well. Somewhat surprising that he did not also have hematuria, obviously as as above with GI bleeding, will need to follow urinary bleeding closely with the antiplatelets. Discussed with urology, next step will be cystoscopy in the office, and between urology and nurse navigator, this is being set up. follow up with Dr. Hinton on 10/8 for discussion, possible cystoscopy (12) Claudication: c/o pain, heaviness in legs after walking a block, gets better with rest arterial doppler done on 12/10: IMPRESSION: 1. There is occlusion of the proximal right posterior tibial artery with distal reconstitution. 2. There is complete occlusion of the distal left popliteal artery with reconstitution in the calf. 3. There is thrombosis of the distal left peroneal artery. SOFIYA in both the left and right was low, in the 0.6-0.7 range can follow up with Dr. Moreno in the office to discuss any role in intervention Dr. Guzmán will want the patient ambulating post op so it is important that this is looked into Total Time Total Time Spent Total Time Spent (In Minutes): 50 minutes Total Time Includes: Examination of the Patient, Discharge Planning, Medication Reconciliation and Communication With Other Providers (Dr. Guzmán, Dr. Moreno) Discharge Plan Discharge Items Patient Disposition: Home - Self-Care Reason For Visit: GIB Discharge Diagnosis: GI bleed Esophageal mass, adenocarcinoma Coronary artery disease Bladder tumor Condition on Discharge: Good Health Concerns: watch for any further signs of GI bleeding, such as dark stools Goals: follow up for endoscopic ultrasound with Dr. Prasad with [facility] this coming week follow up for PET/CT on Thursday follow up with Dr. Sundar Hinton, urology, for bladder tumor follow up with Dr. Guzmán to discuss options for esophageal tumor will need referred to oncology but this can be done outpatient after you see Dr. Guzmán Activity: Resume your previous activity Non-emergency contact: Primary Care Provider and Surgeon Call non-emergency contact if: you have any medication questions, your symptoms worsen and you have a fever Follow-up/Referrals: Sundar Hinton MD [Physician] - 12/21/18 12:45 pm (A follow up appt. has been made for you with Dr. Hinton on December 21 at 12:45pm.) Dusty Allen Jr, DO [Primary Care Provider] - Diet: Carb Consistent or DM2 and Heart Healthy Addtl Attending Provider Instructions: You have been scheduled for a PET scan on Thursday, Dec.15 at 8:30am. You should present around back of [facility] to the Cancer Center entrance to register. You will receive a call 1-2 days prior with instructions. MEDICATIONS: - PLAVIX: continue at 75mg daily - ASPIRIN: stop this medication due to risk of bleeding GI bleeding due to esophageal mass, adenocarcinoma bleeding has stopped off of aspirin and Plavix, discussed with cardiology, prefer to use just Plavix Hemoglobin has been stable and vitals are stable please continue to monitor for any dark stools as this would indicate rebleeding, would stop Plavix in that situation and call Dr. Tiffany Guzmán plans to see you in the office after you get endoscopic ultrasound and PET scan he will discuss at that time either referring you to onoclogy for chemo and radiation prior to surgery or just proceeding with surgery, it depends on results of testing Dr. Guzmán's office will contact you for appointment Madonna Webster, his office should contact you regarding scheduling endoscopic US Follow up with Dr. Hinton, urology, regarding bladder tumor on 12/21/18 Coronary disease given your recent stenting it is important to take Plavix as long as you have no further bleeding you are more than 2 months out from stent so the risk of in stent thrombosis is dramatically reduced if you would have chest pain don't ignore it, report to the ED for evaluation Pending Studies at Discharge: No Stand-Alone Forms: My [facility] [employer] Medications and DC Order Prescriptions: Continued Tresiba FlexTouch U-100 100 unit/mL (3 mL) insulin pen 94 units SQ HS RF: 0 metoprolol succinate 25 mg tablet extended release 24 hr 25 mg PO QAM RF: 0 isosorbide mononitrate 30 mg tablet extended release 24 hr 30 mg PO QAM RF: 0 lisinopril 20 mg tablet 20 mg PO QAM Qty: 90 RF: 0 hydrochlorothiazide 12.5 mg tablet 12.5 mg PO QAM Qty: 90 RF: 0 clopidogrel 75 mg tablet 75 mg PO QAM RF: 0 [id number]-algal oil [Metanx (algal oil)] 3 mg-35 mg-2 mg -90.314 mg capsule 1 cap PO BID RF: 0 ascorbic acid (vitamin C) 500 mg tablet 500 mg PO BID RF: 0 ergocalciferol (vitamin D2) 50,000 unit capsule 50,000 units PO WK RF: 0 fluticasone propion-salmeterol 500-50 mcg/dose blister with device 1 puffs inhalation BID PRN (Reason: Congestion) RF: 0 vitamin E (dl, acetate) 400 unit capsule 400 units PO QAM RF: 0 rosuvastatin 20 mg tablet 20 mg PO QPM RF: 0 pantoprazole 40 mg Tablet,Delayed Release (Dr/Ec) 40 mg PO BID Qty: 60 RF: 0 ondansetron 4 mg tablet,disintegrating 4 mg PO Q6H PRN (Reason: nausea and vomiting) Qty: 14 RF: 0 multivitamin Tablet 1 tab PO DAILY RF: 0 potassium 99 mg Tablet 99 mg PO DAILY RF: 0 insulin lispro 100 unit/mL Cartridge 1 sliding scale dose SUBCUT TID RF: 0 Novolog Flexpen U-100 Insulin 100 unit/mL (3 mL) insulin pen 25 unit subcut AC RF: 0 Discontinued aspirin [Aspir-81] 81 mg Tablet,Delayed Release (Dr/Ec) 81 mg PO QAM RF: 0 sucralfate [Carafate] 100 mg/mL suspension 10 ml PO QID Qty: 420 RF: 0 famotidine 20 mg tablet 20 mg PO BID Qty: 20 RF: 0 fluvastatin 40 mg Capsule 40 mg PO HS RF: 0 Discharge Orders: Discharge Order (Routine); Ordered 12/10/18 Ordered By: Yahir Stevenson Admission Data Admit Date/Time: 12/07/18 13:47 Attending Provider: Yahir Stevenson Admit Provider: Karen Davies Primary Care Provider: Dusty Allen Jr Other Providers: Karen Davies ; Mo Balbuena ; Kevin Guzmán ; Watson De ; Edward Moreno Other Interventions: Discharge Summary Assessment (RN) Last Done: 12/09/18 10:21 DC Date/Time DO NOT enter until pt leaves facility: 12/10/18 18:11
[2018-12-10 17:05] VITALS: BP 159/64
--- NOTE | 2018-12-10 18:41 | Ultrasound Report ---
ULTRASOUND BILATERAL LOWER EXTREMITY ARTERIAL; ANKLE-BRACHIAL INDICES CLINICAL HISTORY: Peripheral arterial disease. Claudication. COMPARISON STUDY: No priors. TECHNIQUE: Real-time, grayscale, and color Doppler sonography of the arteries of the right and left l ower extremities performed from the inguinal crease to the foot. Ankle-brachial indices were assessed . FINDINGS: Ankle-brachial indices: Left brachial pressure measures 177. Pressures within the right posterior tib ial artery measure 123 for an SOFIYA of 0.69, and pressures in the right dorsalis pedis artery measure 1 31 for SOFIYA of 0.74. Pressures in the left posterior tibial artery measure 118 for an SOFIYA of 0.67, and pressures in the left dorsalis pedis artery measure 114 for SOFIYA of 0.64. Right lower extremity: There is atherosclerotic plaque and irregularity seen throughout the arteries of the right lower extremity. There are normal triphasic waveforms in the right common femoral artery with velocities measuring up to 130 cm/s. The profunda femoris artery is patent with velocities sharee uring up to 97 cm/s. There are triphasic waveforms throughout the superficial femoral artery with vincenzo ocities measuring up to 125 cm/s. There are triphasic waveforms in the popliteal artery with velociti es measuring up to 46 cm/s. The right posterior tibial artery is occluded proximally. This is reconst ituted distally. There are biphasic waveforms in the anterior tibial artery with velocities measuring up to 52 cm/s. The peroneal artery is patent with velocities measuring up to 57 cm/s. The dorsalis p bisi artery is patent with velocities measuring up to 38 cm/s. Left lower extremity: There is atherosclerotic plaque and irregularity seen throughout the arteries o f the left lower extremity. There are triphasic waveforms in the common femoral artery with velocitie s measuring up to 157 cm/s. The profundus femoris artery is patent with velocities measuring up to 10 3 cm/s. There are triphasic to biphasic waveforms in the superficial femoral artery with velocities m easuring up to 151 cm/s. The proximal popliteal artery is patent with velocities measured 80 cm/s. Th e popliteal artery is occluded distally. There is reconstitution in the calf. There is monophasic to biphasic flow in the anterior tibial artery with velocities measuring up to 21 cm/s. There are biphas ic waveforms in the proximal peroneal artery with velocities measuring up to 59 cm/s. The distal ita jeronimo artery appears occluded. There are biphasic waveforms in the posterior tibial artery with veloci ties measuring up to 68 cm/s. The dorsalis pedis artery is patent with velocities measuring up to 20 cm/s. IMPRESSION: 1. There is occlusion of the proximal right posterior tibial artery with distal reconstitution. 2. There is complete occlusion of the distal left popliteal artery with reconstitution in the calf. 3. There is thrombosis of the distal left peroneal artery. 4. Ankle brachial indices as above. Dictated: 12/10/2018 5:15 PM Transcribed: 12/10/2018 6:20 PM Anum [id number] JUSTIN_Arslan Electronically signed by: Ángel Lynn M.D. 12/10/2018 6:40 PM
[2018-12-10] MEDS ORDERED: PANTOprazole 40 MG TAB PO SCH (21:00)
== END 2018-12-10 18:11 | disposition home or self-care (01) | DRG 378 ==
LOC: ED 08:53 → 2N 13:47 → SUATTDRO 13:47 → 2N 14:38
DX: N17.9 Acute kidney failure, unspecified; K92.2 Gastrointestinal hemorrhage, unspecified; E11.65 Type 2 diabetes mellitus with hyperglycemia; Z82.3 Family history of stroke; Z79.4 Long term (current) use of insulin; I10 Essential (primary) hypertension; I73.9 Peripheral vascular disease, unspecified; D62 Acute posthemorrhagic anemia; E87.6 Hypokalemia; Z79.82 Long term (current) use of aspirin; Z83.3 Family history of diabetes mellitus; E78.5 Hyperlipidemia, unspecified; K22.2 Esophageal obstruction; I25.10 Atherosclerotic heart disease of native coronary artery without angina pectoris